=== PATIENT | male | born 1945 | race Caucasian/White ===

== ENCOUNTER → 2024-03-25 13:06 | Outpatient (REF) | payer MEDICARE, OTHER, SELFPAY ==
[2024-03-25 15:52] LABS: HDL Cholesterol 31 mg/dl; LDL Cholesterol, Calculated 95 mg/dl; Total Cholesterol 162 mg/dl (50-199); Triglyceride 182 mg/dl (10-149); Very Low Density Lipoprotein 36 mg/dl (0-30)
== END ==
LOC: HWLAB 13:06
PROVIDERS: ATTENDING PHYSICIAN Internal Medicine Cardiovascular Disease; FAMILY PHYSICIAN Family Medicine
DX: E78.2 Mixed hyperlipidemia (principal); I10 Essential (primary) hypertension
CPT/HCPCS: 36415; 80061

== ENCOUNTER 2024-12-03 18:56 | Inpatient (IN) | payer MEDICARE, OTHER, SELFPAY ==
[2024-12-03] VITALS (9 sets, daily range): BP systolic 106–197; BP diastolic 53–139
--- NOTE | 2024-12-03 17:04 | HPS.HSE ---
Addendum entered and electronically signed by Madeleine Covarrubias MD 12/06/24 16:49:
Late note entry
Patient was seen and evaluated in the emergency the day of presentation around 4:50 PM on December 03, 2024
Briefly, patient is a 79-year-old gentleman with past medical history of hypertension, hyperlipidemia, arthritis, diverticulosis, JOVANNI, prior kidney stones, CVA, GERD, coronary artery disease with ST elevation WA in 2017 with RCA and LAD
intervention, WA in 2011 with occluded OM who presents this admission with acute onset chest discomfort starting around this afternoon radiating to his left shoulder while he was watching TV. He insisted rather than calling EMS that his drive
him to the hospital. Initial presentation showed an EKG with inferior ST elevations for which heart catheterization lab was activated. Patient was seen and evaluated in the emergency room. He was having ongoing 6 out of 10 chest pain. He was
noted to be hypertensive and therefore nitroglycerin was given to him. He was also given full dose aspirin, Brilinta 180 mg, 5000 units of unfractionated heparin and after detailed informed consent was rushed up to the heart catheterization lab.
He tells me that he has only been taking Praluent and no other chronic medications. He confirmed that he has not been taking aspirin or any other antiplatelet agents at home.
On exam patient is an elderly gentleman, tearful while presenting in the emergency room, regular rate, normal S1 and S2, no murmurs, rubs or gallops, abdomen is soft, nontender, nondistended with active bowel sounds, warm extremities without
significant edema
Plan:
1. Acute treatment for ST elevation WA with full dose aspirin, Brilinta 180 mg, IV unfractionated heparin and nitroglycerin x 2
2. After detailed informed consent reviewing the risk and benefits, patient was emergently taken up to the heart catheterization lab for a left heart catheterization to rule out obstructive CAD.
at bedside was updated regarding all of the above.
Further recommendations based on findings of the heart catheterization.
Madeleine Covarrubias MD, [facility], [facility]
Original Note:
Family Physician
-
Family Physician: Erica Gudino MD
International Accountant: Uriel Wheatley MD
Chief Complaint
-
Inferior STEMI
History of Present Illness
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 He developed chest pain at rest this afternoon radiating to shoulder and came to ER. EKG showed
inferior ST elevations, STEMI alert called. He was given ASA 325, Brilinta 180mg, sl nitro. He was brought urgently to engineering laboratory technician
Medical History
Past Medical History
Past Medical History: Reports CAD (STEMI 2018 RCA/LAD, WA 2011 occluded OM), CVA, GERD, HTN, Hypercholesterolemia, WA and Other (Arthritis, Diverticulosis, JOVANNI, kidney stones)
Past Surgical History: Reports Appendectomy, Cholecystectomy and Other (cataract, parotid gland surgery, TKR R, back surgery)
Social History
Tobacco: Non-smoker
Alcohol: None
Personal:
Living: With Family
Family History
Family History: Not pertinent
Allergies / Home Medications
Allergies reflects when Allergies were last updated in [facility].
Home Medications with original date entered in [facility]
Allergy/Medication List:
Allergies
Allergy/AdvReac Type Severity Reaction Status Date / Time
codeine Allergy Rash Verified 12/03/24 16:50
lisinopril Allergy cough Verified 12/03/24 16:50
niacin [Niacin] Allergy Itching Verified 12/03/24 16:50
Xudtiqt-GHR-CuV Reductase Allergy musle Verified 12/03/24 16:50
Inhibitor weakness,soreness
[Occanoi-Jlm-Dox Reductase
Inhibitor]
�Medication �Instructions �Recorded �Confirmed �Type
alirocumab 75 mg/mL subcutaneous 75 mg INJ Q2W High cholesterol 03/07/18 03/18/23 History
pen injector (Praluent Pen)
prednisone 5 mg tablet 5 mg PO HS Anti-inflammatory 03/07/18 03/18/23 History
amoxicillin 875 mg-potassium 1 tab PO Q8H 8 days #4 tabs 03/20/23 Rx
clavulanate 125 mg tablet
Review of Systems
-
Cardiac: Reports Chest Pain
Physical Exam
Vital Signs
Vital Signs
Pulse Resp BP Pulse Ox
80 16 197/87 96
12/03/24 16:59 12/03/24 16:59 12/03/24 16:59 12/03/24 16:59
Physical Exam
General: Pain (chest pain, tearful, deferred as undergoing urgent procedure)
Impression/Plan
-
PCP: Henry Gudino MD
CDY: Uriel Wheatley MD
IMPRESSION:
Acute Inferior STEMI
CAD/WA - 05/21/2018 inferior STEMI PCI RCA 3.65m83sh Xience KSENIA and PCI LAD 3.0x33mm Xience KSENIA
12/28/2011 Unsuccessful PCI with occlusion of OM2 post procedure
CVA 2014
HTN
Hyperlipidemia statin intolerant
JOVANNI/CPAP
GERD/BE
Arthritis
Diverticulitis
Parotid tumor resection and radiation
Obesity
PLAN:
Admit IVU post PCI
Serial troponin to peak
Echo in am
DAPT ASA/Brilinta (CM to eval cost)
check CVE, continue Praluent at d/c
Cardiac rehab c/s
Will need to initiate low dose BB in am
Add PPI for GERD
f/u DCA 2-4 weeks
critically ill, diagnosis is threat to life
continue to monitor on tele at least 48 hours
[2024-12-03 17:05] LABS: % Basophils 0.8 % (0-2); % Immature Granulocytes 0.4 % (0-0.5); % Lymphocytes 14.7 % (20.5-51.1); % Monocytes 8.9 % (1.7-9.3); % Neutrophils 74.2 % (42.2-75.2); Absolute Basophils 0.1 10^3/uL (0-0.2); Absolute Eosinophils 0.1 10^3/uL (0-0.7); Absolute Lymphocytes 1.2 10^3/uL (1.2-3.4); Absolute Monocytes 0.7 10^3/uL (0.1-0.6); Absolute Neutrophils 5.8 10^3/uL (1.4-6.5); Hematocrit 43.6 % (39.0-52.0); Hemoglobin 14.5 g/dL (13.0-18.0); Mean Corp Hgb Conc. 33.3 g/dL (33.0-37.0); Mean Corpuscular Hgb 29.3 pg (27.0-31.0); Mean Corpuscular Volume 88.1 fL (80.0-94.0); Mean Platelet Volume 11.1 fL (7.4-10.4); Nucleated Red Blood Cells % 0 % (-); Platelet Count 182 10^3/uL (130-400); Red Blood Cell Count 4.95 10^6/uL (4.70-6.10); Red Cell Dist. Width 14.5 % (11.5-14.5); White Blood Cell Count 7.8 10^3/uL (4.8-10.8)
--- NOTE | 2024-12-03 17:05 | ED.GENMED ---
History of Present Illness
General
Chief Complaint: Chest Pain
Source: patient and spouse
Exam Limitations: none
Time Seen by Provider: 12/03/24 16:43
Nursing documentation reviewed up to this point in time: agreed with
History of Present Illness
History of Present Illness:
Patient with history of CAD, with multiple cardiac stents, presents to ED secondary to sudden onset of left-sided chest pain while he was at home watching TV. Chest pain described as pressure left-sided, with radiation to left jaw and left arm.
Denies nausea or vomiting. Denies diaphoresis. Denies dizziness. Denies shortness of breath. Denies leg pain or swelling. Denies back pain. Denies recent travel or surgery.
Past History
Past History
ED Past Medical History: CAD, CVA, GERD, HTN, Hypercholesterolemia, [place], Other (Sepsis March 2021, kidney stones, spinal stenosis, arthritis, chronic hearing impaired), Other and Other
ED Past Surgical History: Appendectomy, Cardiac (PTCA with stent), Cholecystectomy, Orthopedic, Urological (Kidney stone removal) and Other
Patient has exhibited threatening behavior?: No
PSI?: No
Social History
Tobacco: Non-smoker
Alcohol: None
Drug: None
Personal:
Living: with family
Employment: Retired
Family History
Family History: Hypertension
Review of Systems
Review of Systems
Allergies reviewed?: Yes
All Other Systems: ROS reviewed and negative except as documented in HPI and ROS
Constitutional: Reports no symptoms; Denies fever
Respiratory: Reports no symptoms; Denies trouble breathing
Cardiac: Reports chest pain
ABD/GI: Reports no symptoms; Denies nausea
: Reports no symptoms
Musculoskeletal: Reports no symptoms
Skin: Reports no symptoms
Neurological: Reports no symptoms
Phy Exam
Physical Exam
Physical Exam:
Physical Exam
General: mild distress, acutely ill. afebrile. hypertensive.
Head: nc/at. eomi
Neck: supple. normal range of motion.
Heart: s1/s2 regular rate and rhythm, no murmur.
Lungs: no acute respiratory distress. clear bilaterally
Abdomen: normal bowel sounds. not tender.
Neuro: alert and oriented x 3. no focal neurological deficits
Skin: no rash
Psychiatric: well kept. interactive and cooperative. anxious appearing
Extremities: no edema. no calf tenderness.
Scores
Heart Score for Chest Pain Patients
STEMI patient?: Yes
History: Highly Suspicious
Course
Orders/Labs/Results
Orders:
Orders
12/03/24 Dinner
Cholesterol Lowering
At Your Request: Full Participation
Cholesterol Lowering: Sodium, 2 Gram
12/03/24 16:34
EKG [Electrocardiogram (*1)] Urgent
Reason for Study: Chest Pain
12/03/24 16:35
EKG- Treatment ONCE
12/03/24 16:51
HYDROmorphone [Dilaudid] 1 mg .ROUTE .STK-MED ONE
12/03/24 16:55
Complete Blood Count/With Diff Urgent
Comprehensive Metabolic Panel Urgent
PT/INR [Prothrombin Time] Urgent
PTT Urgent
Troponin I Urgent
12/03/24 17:08
Aspirin Chewable [Low Strength Aspirin] 324 mg .ROUTE .STK-MED ONE
Heparin 5,000 units .ROUTE .STK-MED ONE
Ticagrelor [Brilinta] 180 mg .ROUTE .STK-MED ONE
12/03/24 17:16
Code Status As Directed
Resuscitation Status: Full Code
12/03/24 17:19
Admit Patient As Directed
Co-Sign Provider:
Level of Care: Inpatient admission
Assign to:: IVU
Physician / Group: ivette/ashtyn
Diagnosis: STEMI
Reason for Hospitalization: STEMI
Expected length of stay greater than two midnights?: Yes
ELOS- Estimated Length of Stay in days: 2
I certify the patient meets the requirements for IP care: Yes
Electrocardiogram (*1) Urgent
Reason for Study: Other
Other Reason for Exam: s/p intervention
Comment: dca
CARDIAC REHAB CONSULT Routine
Co-Sign Provider:
Cardiac Rehab & Exercise Evaluation Referral
Type of Cardiac Rehab Referral: Outpatient
Diagnosis: STEMI
Date of Diagnosis/Surgery: 12/03/24
Referring Provider: Uriel Wheatley
[facility] Intensive Cardiac Rehab Exercise Prescription
The above named person is capable of participating in an intensive cardiac rehab exercise therapy program
under the guidance of the [facility] cardiac rehab staff, outpatient registered dieticians and
supervision of a physician.
ICR Program Objectives:
Provide supervised exercise, cooking classes, nutritional counseling and healthy mind-set education to
improve the function/symptom free work capacity to an optimal level as well as control risk factors to
prevent the progression of heart disease. During the supervised exercise therapy session some or all of
the following may be included in the cardiac rehab session: ECG telemetry, BP, heart rate, rate of
perceived exertion, symptoms/tolerance, cholesterol testing and education. Exercise modalities may
include: treadmill, upright or recumbent bike, spin bike, rowing machine, elliptical, recumbent
elliptical, arm-bike machine, recumbent stepper and free weights.
Intensity:
All CR staff will use ACSM guidelines: Most patients will exercise in the following range: Heart Rate
[place] range of 40% to 80% & Oxygen Uptake reserve range 40-80% (VO2R). Peak heart rate and VO2 are
derived from the cardiac rehab submaximal graded exercise test at RPE of 13/14 out of 20. Initial
intensity range: RPE 11 to 14/20 and may expand to 11 to 16/20.
Duration & Frequency:
If appropriate the patient will be progressed up to 40 minutes of exercise therapy. Patients will be
instructed to come three times a week in cardiac rehab and at a home/other gym to achieve optimal
physical activity/exercies i.e. 4000-10,000 steps per day.
Education:
The patient will receive one-on-one education during their orientation, initial exercise evaluation, ITP
reassessments and discharge session. Each exercise session will also include an education class (30-40
minutes).
Activity As Directed
Activity Level: Out of Bed- Chair
Comment: bed/chair rest for 2 hours then out of bed ad rosamaria
[employer] Procedure As Directed
Cardiac Cath Procedure: percutaneous coronary intervention
Intake/ Output As Directed
Frequency: Per unit guidelines
Notify MD As Directed
Notify physician if: immediately for chest pain or bleeding from access site(s)
Radial Artery Hemostasis Method As Directed
Instructions:: 3 mL out at 2 hour posts placement of band
3 mL out at 2 1/2 hours post placement of band
3 mL out at 3 hours post placement of band
Off at 3 1/2 hours post placement of band
If any oozing or hemotoma occurs:: re-inflate band and call provider
Site Checks As Directed
Check access site for bleeding/hematoma: Yes
Comment: on arrival, Q15min x4, Q30min x2, Q1 hr x2, Q2 hr x2, Q4 hr or per
protocol
Vascular Checks As Directed
Location: distal to access site - pulse check
Frequency: Other
Comment: on arrival, Q15min x4, Q30min x2, Q1 hr x2, Q2 hr x2, Q4 hr or per protocol
Vital Signs As Directed
Frequency: Other
Additional Instructions:: on arrival, Q15min x4, Q30min x2, Q1 hr x2, Q2 hr x2, then Q4 hr or per unit
protocol
PRN Pain Medication Management As Directed
May give lesser potent ordered pain med per pt: Yes
preference::
Protocol:: Medication orders for pain may be administered in a
manner that supports deferring to patient preference
when the pt is:
- Requesting an ordered lesser potent pain medication.
Least to most potent pain medications are defined
as: acetaminophen < NSAID < tramadol < opioids
(morphine, oxycodone, hydromorphone).
- Requesting a lesser dose of the same medication IF
ORDERED.
- Requesting a less intrusive route of administration
if both routes are prescribed by the provider (PO <
IV).
DX Deep Vein Thrombosis Video Routine
12/03/24 17:30
0.9% Sodium Chloride 1000 ml [Nss] 1,000 ml IV PER PROTOCOL
Infusion rate in mL/kg/hr:: 1.5
Infusion rate in mL/hr:: 168
Duration of infusion (hours):: 5
12/03/24 17:32
Case Management Consult ONCE
Case Management Consult: Other
Comment: Brilinta cost
12/03/24 18:27
Acetaminophen [Tylenol] 650 mg PO Q4HPRN PRN
12/03/24 18:28
Ondansetron Injectable [Zofran] 4 mg IV Q6HPRN PRN
12/03/24 19:00
0.9% Sodium Chloride 250 ml [Nss] 250 ml Cangrelor [Kengreal] 50,000 mcg IV 0.75 mcg/kg/min
12/03/24 23:00
Troponin I Q6H
12/04/24 05:00
Troponin I Q6H
12/04/24 06:00
Echo 2D MMode Color/Doppler IN AM
Reason for Study: STEMI
Comment: Covarrubias
Electrocardiogram (*1) IN AM
Reason for Study: Other
Other Reason for Exam: s/p intervention
Comment: dca
Basic Metabolic Panel IN AM
Cardiovascular Evaluation IN AM
Complete Blood Count/No Diff IN AM
Glycohemoglobin (HgbA1c) Routine
12/04/24 08:00
Aspirin Chewable [Low Strength Aspirin] 81 mg PO DAILY
Pantoprazole [Protonix] 40 mg PO DAILY
Ticagrelor [Brilinta] 180 mg PO ONCE ONE
Ticagrelor [Brilinta] 90 mg PO BID
12/04/24 11:00
Troponin I Q6H
12/04/24 18:00
Enoxaparin Sodium [Lovenox] 40 mg SC QPM
12/04/24 20:00
Ticagrelor [Brilinta] 90 mg PO BID
12/05/24 06:00
Electrocardiogram (*1) IN AM
Reason for Study: Other
Other Reason for Exam: s/p intervention
Comment: dca
Basic Metabolic Panel IN AM
Complete Blood Count/No Diff IN AM
Abnormal Lab Results
12/03/24
16:55
MPV 11.1 H fL
(7.4-10.4)
Absolute Monos (auto) 0.7 H 10^3/uL
(0.1-0.6)
Lymphocytes % 14.7 L %
(20.5-51.1)
Chloride 108 H mmol/L
(98-107)
Creatinine 1.5 H mg/dL
(0.7-1.3)
Glucose 110 H mg/dl
(70-99)
Total Bilirubin 2.0 H mg/dl
(0.2-1.3)
Troponin I 0.110 H* ng/ml
12/03/24 16:55
12/03/24 16:55
Vital Signs
Initial and Last Documented VS:
Initial Vital Signs
Pulse Resp BP Pulse Ox
80 16 197/87 96
12/03/24 16:59 12/03/24 16:59 12/03/24 16:59 12/03/24 16:59
Last Documented Vital Signs
Pulse Resp BP Pulse Ox
75 16 197/87 94
12/03/24 19:30 12/03/24 16:59 12/03/24 16:59 12/03/24 19:30
MDM/Problems Addressed
MDM/Problems Addressed:
STEMI alert activated immediately upon evaluation of initial EKG.
Patient evaluated bedside by Dr. Covarrubias, hair dresser. Agrees with plan to proceed with protocol, i.e. aspirin, Brilinta, and heparin, nitroglycerin. Patient's chest pain did not improve with nitroglycerin. As such, patient given
0.5 mg Dilaudid, prior to transfer to [employer].
Critical care statement: A total of 30 minutes of critical care time was provided for this patient. This includes management of unstable vital signs, evaluation of the patient at bedside, reviewing the patient's pertinent medical records, discussion
with consultants, review of old EKGs and review of pertinent medical records. This time with separate from time utilized to perform the aforementioned documented procedures
*EKG
Interpreted by ED Provider?: Yes
EKG Intrepretation Date: 12/03/24
Heart Rate: 76
Rate: normal
Rhythm: sinus
Ischemia: ST elevation
*Critical Care Note
Total Time (30-74mins, 75-104mins- exclusive of procedures): 30 min
ED Attending Note
-
Portions of this chart may have been created with voice recognition software.� Occasional wrong word or��sound alike� substitutions may have occurred due to the inherent limitations of voice recognition software.
Discharge Plan
Departure
Patient Disposition: [facility] [employer]CH[employer]
Date of Disposition: 12/03/24
Time of Disposition: 17:06
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
Presentation/result/management discussed w/ accepting MD/DO:
Discharge Problem:
ST elevation (STEMI) myocardial infarction
Interventions
Interventions:
*Risk Screen - Suicide Last Done: 12/03/24 19:20
*General Assessment Last Done: 12/03/24 17:18
*Neglect/Abuse Screening Last Done: 12/03/24 17:18
*ED- Fall Risk Assessment Last Done: 12/03/24 17:18
*ED COVID-19 Vaccine History Last Done: 12/03/24 19:20
*Nursing Disposition Last Done: 12/03/24 17:08
ED- Cardiac Assessment Last Done: 12/03/24 17:18
Discharge Date and Time
Discharge Date/Time: 12/03/24 17:31
[2024-12-03 17:14] LABS: APTT 24.3 Sec (23.4-35.0); PT 13.7 Sec (11.4-14.6)
[2024-12-03 17:27] LABS: ALT (SGPT) 14 U/L (0-50); AST (SGOT) 22 U/L (17-59); Albumin 4.4 g/dl (3.5-5.0); Alkaline Phosphatase 47 U/L (38-126); Blood Urea Nitrogen 16 mg/dl (9-20); Calcium 9.2 mg/dl (8.4-10.2); Carbon Dioxide 22 mmol/L (22-30); Chloride 108 mmol/L (98-107); Estimated Creatinine Clearance 52 ml/min; Glucose 110 mg/dl (70-99); Sodium 143 mmol/L (135-145); Total Protein 6.7 g/dl (6.3-8.2); eGFR 47.36
--- NOTE | 2024-12-03 18:39 | ITS.CL.CATH ---
Addendum entered and electronically signed by Madeleine Covarrubias MD 12/06/24 17:02:
CORONARY FINDINGS
DOMINANCE: Right
LEFT MAIN: The left main artery is a large-caliber vessel with 30% distal stenosis and gives rise to the left anterior descending artery and the left circumflex artery.
LEFT ANTERIOR DESCENDING: The left anterior descending artery is a medium to large caliber vessel which gives rise to 2 major diagonal branches. Ostial LAD has eccentric 30 to 40% stenosis. Proximal to mid LAD has eccentric 50 to 60% stenosis.
Mid LAD has 90% stenosis just distal to previously placed stent.
CIRCUMFLEX: The left circumflex artery is a medium to large caliber vessel which gives rise to 1 major obtuse marginal branch. There is a known 100% mid left circumflex occlusion at the level of prior PCI which has been present on prior
catheterization. OM1 has proximal 70 to 80% calcified stenosis.
RIGHT CORONARY ARTERY: The right coronary artery is a large-caliber, dominant vessel which gives rise to the right posterior descending artery and the right posterolateral system. Mid to distal LAD has a hazy, ulcerated, 70% culprit plaque with
appearance of recent cannulization which was intervened upon as noted below. Distal LAD just proximal to the bifurcation of RPDA and RPL has 40% stenosis. Previously placed proximal RCA stent is widely patent.
Madeleine Covarrubias MD, [facility], [facility]
Original Note:
Device Engineer - Catheterization
Cardiac Catheterization
Procedure Report:
LEFT HEART CATHETERIZATION AND CORONARY INTERVENTION
Date of Procedure: December 03, 2024
Referring: [place] emergency department
PROCEDURES:
1. Left heart catheterization, coronary angiogram.
2. Moderate sedation.
3. Successful percutaneous coronary artery intervention of a hazy, ulcerated, 70% culprit plaque in mid to distal RCA with appearance of recent recanalization with one 3.0 x 38 mm Medtronic Hickman drug-eluting stent, postdilated using IVUS guidance
with a 3.5 x 20 mm NC balloon at 18 jai distally and 20 jai proximally with an excellent angiographic result.
4. Intravascular ultrasound (IVUS)
INDICATION: patient is a 79-year-old gentleman with past medical history of hypertension, hyperlipidemia, arthritis, diverticulosis, JOVANNI, prior kidney stones, CVA, GERD, coronary artery disease with ST elevation AK in 2018 with RCA (3.25 x 18 mm
Xience Day drug-eluting stent, postdilated at high pressure with a 4 mm NC balloon) and LAD (3.0 x 33 mm Xience Day KSENIA, postdilated with 3.5 NC balloon) intervention, AK in 2011 with occluded OM who presents this admission with acute onset
chest discomfort starting around this afternoon radiating to his left shoulder while he was watching TV. He insisted rather than calling EMS that his drive him to the hospital. Initial presentation showed an EKG with inferior ST elevations
for which heart catheterization lab was activated. Patient was seen and evaluated in the emergency room. He was having ongoing 6 out of 10 chest pain. He was noted to be hypertensive and therefore nitroglycerin was given to him. He was also
given full dose aspirin, Brilinta 180 mg, 5000 units of unfractionated heparin and after detailed informed consent was rushed up to the heart catheterization lab. He tells me that he has only been taking Praluent and no other chronic medications.
He confirmed that he has not been taking aspirin or any other antiplatelet agents at home.
ACCESS: Right radial artery, 6 Bahamian sheath, under ultrasound guidance
Ultrasound was utilized for vascular access. The radial artery was visualized under ultrasound, and the vessel was patent and pulsatile. An image was stored permanently in the patient's medical record. Under direct ultrasound guidance, a 6 Bahamian
sheath was inserted into the artery using a micropuncture kit through a modified Seldinger technique.
HEMODYNAMICS : (mmHg)
AO (s/d) : 153/90
LVEDP : 12
CORONARY FINDINGS
DOMINANCE: Right
LEFT MAIN: The left main artery is a large-caliber vessel with 30% distal stenosis and gives rise to the left anterior descending artery and the left circumflex artery.
LEFT ANTERIOR DESCENDING: The left circumflex artery is a medium to large caliber vessel which gives rise to 1 major obtuse marginal branch. There is a known 100% mid left circumflex occlusion at the level of prior PCI which has been present on
prior catheterization. OM1 has proximal 70 to 80% stenosis.
CIRCUMFLEX: The left anterior descending artery is a medium to large caliber vessel which gives rise to 2 major diagonal branches. Ostial LAD has eccentric 30 to 40% stenosis. Proximal to mid LAD has eccentric 50 to 60% stenosis. Mid LAD has 90%
stenosis just distal to previously placed stent.
RIGHT CORONARY ARTERY: The right coronary artery is a large-caliber, dominant vessel which gives rise to the right posterior descending artery and the right posterolateral system. Mid to distal LAD has a hazy, ulcerated, 70% culprit plaque with
appearance of recent cannulization which was intervened upon as noted below. Distal LAD just proximal to the bifurcation of RPDA and RPL has 40% stenosis. Previously placed proximal RCA stent is widely patent.
Of note we started off by
*Initially attempting to take images of the left coronary system which was the known culprit vessel however after just 2 shots patient had significant vomiting and therefore we quickly proceeded to look at the right side to find the culprit vessel
and intervene on this and eventually came back to take more thorough images of the left coronary system. Patient did receive 4 mg of IV Zofran and anesthesia was paged emergently in case patient were to not protect his airway however patient
stabilized and never needed intubation.
CORONARY INTERVENTION: The right coronary artery was selectively engaged using a 6 Bahamian JR4 guide catheter. Additional heparin was given to maintain a therapeutic ACT throughout the case. We advanced a 190 cm 0.014' run-through wire into the
distal vessel. The lesion was predilated using a 3.0 x 20 mm semicompliant balloon with good expansion. The lesion was subsequently stented using a 3.0 x 38 mm Medtronic Hickman drug-eluting stent. We then brought in IVUS [place] eye catheter and
based on IVUS images, we postdilated the stent using a 3.5 x 20 mm NC balloon at 18 jai distally and 20 jai proximally with an excellent angiographic and IVUS based result. No evidence of proximal or distal stent edge dissections were noted. The
stent appeared well-expanded and well apposed. The patient's chest discomfort has significantly improved by the end of the case and essentially resolved. His nausea was somewhat ongoing. He otherwise tolerated the procedure well with no acute
complications.
SEDATION: 87 minutes of procedural sedation was utilized. An independent medical imaging tech was present to assist with and help manage the patient's level of consciousness and physiologic status.
RADIATION SUMMARY: Fluoro Time (min): 10.7, Dose (mGy): 967.44, DAP (Gy.cm2) : 53.7
Closure Device: Vascular band over the right radial artery, 10 cc of air
CONCLUSIONS
1. Successful percutaneous coronary artery intervention of a hazy, ulcerated, 70% culprit plaque in mid to distal RCA with appearance of recent recanalization with one 3.0 x 38 mm Medtronic Hickman drug-eluting stent, postdilated using IVUS guidance
with a 3.5 x 20 mm NC balloon at 18 jai distally and 20 jai proximally with an excellent angiographic result.
2. There is a known 100% mid left circumflex occlusion at the level of prior PCI which has been present on prior catheterization. OM1 has proximal 70 to 80% stenosis.
3. Ostial LAD has eccentric 30 to 40% stenosis. Proximal to mid LAD has eccentric 50 to 60% stenosis. Mid LAD has 90% stenosis just distal to previously placed stent.
4. Normal LVEDP at 12 mmHg
RECOMMENDATIONS
1. Uninterrupted dual antiplatelet therapy with daily baby aspirin and Brilinta along with Praluent and beta-jd as tolerated. Given he threw up soon after his loading dose of Brilinta in the emergency room, we will bridge with cangrelor
overnight in the setting of ongoing nausea with plan to reload 180 mg of Brilinta in the morning.
2. Wean radial band per protocol.
3. Echocardiogram to assess biventricular function and rule out any significant valvular abnormalities.
4. Staged PCI of mid to distal LAD +/- OM1.
5. Aggressive management of cardiovascular risk factors.
6. Eventual referral for outpatient cardiac rehab.
Copy to: Uriel Wheatley MD
Madeleine Covarrubias MD, FACC, [facility]
--- NOTE | 2024-12-03 19:33 | PTCARENOTE ---
Patient received from the concrete mixing plant laborer at 1930. Patient AO x 3, U[place]UT, denies pain. NSR with 1st degree HB, EKG completed. Right radial band in place, no bleeding, POX 97% on right hand. Patient oriented to room and call zheng in reach
[2024-12-03] MEDS: KENGREAL 255 MCG IV (19:56)
--- NOTE | 2024-12-03 20:00 | PTCARENOTE ---
Received pt from poultry farm laborer s/p PCI to the RCA by Dr Covarrubias. pt is AAOx4, NSR with 1st degree AV blocked per EKG. Pt had 8 beat run of [facility], VSS, Dr. Covarrubias notified, verbal order for 25mg Toprol XL taken and sent to pharmacy. Admission questions asked
of pt and his . Home meds reviewed and pt stated that he has stopped taking all meds except for Praluent Pen. heart sounds audible, radial and DP pulses palpable, no edema noted. lungs clear but diminished throughout, spo2 95% on RA. +BS x4
quadrants, abdomen soft non tender, round/obese. pt voiding clear yellow urine. right radial I band on with 11mls of air, no active bleeding noted, following protocol. PIV maintained. Cangrelor gtt started per order and verified by another RN. call
zheng within reach. will continue to monitor.
[2024-12-03] MEDS: TOPROL XL 25 MG PO (21:22)
--- NOTE | 2024-12-03 21:30 | PTCARENOTE ---
Received pt from labelling machine operator s/p PCI to the RCA by Dr Covarrubias. pt is AAOx4, NSR with 1st degree AV blocked per EKG. Pt had 8 beat run of [facility], VSS, Dr. Covarrubias notified, verbal order for 25mg Toprol XL taken and sent to pharmacy. Admission questions asked
of pt and his . Home meds reviewed and pt stated that he has stopped taking all meds except for Praluent Pen. heart sounds audible, radial and DP pulses palpable, no edema noted. lungs clear but diminished throughout, spo2 95% on RA. +BS x4
quadrants, abdomen soft non tender, round/obese. pt voiding clear yellow urine. right radial TR band on with 11mls of air, no active bleeding noted, following protocol. PIV maintained. Cangrelor gtt started per order and verified by another RN. call
zheng within reach. will continue to monitor
[2024-12-04] VITALS (14 sets, daily range): BP systolic 83–122; BP diastolic 45–80; BMI 33.6
--- NOTE | 2024-12-04 00:23 | PTCARENOTE ---
Pt is resting comfortably in bed. VSS. pt has had ongoing PVC and runs of VT. vital signs have remained stable throughout the night. House provider notified.
[2024-12-04 01:20] LABS: Hematocrit 38.6 % (39.0-52.0); Hemoglobin 12.9 g/dL (13.0-18.0); Mean Corp Hgb Conc. 33.4 g/dL (33.0-37.0); Mean Corpuscular Hgb 29.5 pg (27.0-31.0); Mean Corpuscular Volume 88.1 fL (80.0-94.0); Mean Platelet Volume 10.9 fL (7.4-10.4); Platelet Count 144 10^3/uL (130-400); Red Blood Cell Count 4.38 10^6/uL (4.70-6.10); Red Cell Dist. Width 14.3 % (11.5-14.5); White Blood Cell Count 6.8 10^3/uL (4.8-10.8)
[2024-12-04 01:34] LABS: Blood Urea Nitrogen 18 mg/dl (9-20); Calcium 8.5 mg/dl (8.4-10.2); Carbon Dioxide 24 mmol/L (22-30); Chloride 109 mmol/L (98-107); Estimated Creatinine Clearance 65 ml/min; Glucose 95 mg/dl (70-99); Potassium 3.9 mmol/L (3.5-5.1); Sodium 143 mmol/L (135-145); eGFR > 60.00
--- NOTE | 2024-12-04 04:00 | PTCARENOTE ---
Pt resting comfortably in bed. NSR with 1st degree AVB and on going PVCs. pt complained of mild right shoulder pain, house provided notified. care team aware. labs drawn and sent. EKG obtained.
[2024-12-04 04:39] LABS: Hematocrit 39.8 % (39.0-52.0); Hemoglobin 13.4 g/dL (13.0-18.0); Mean Corp Hgb Conc. 33.7 g/dL (33.0-37.0); Mean Corpuscular Hgb 29.6 pg (27.0-31.0); Mean Corpuscular Volume 88.1 fL (80.0-94.0); Mean Platelet Volume 11.2 fL (7.4-10.4); Platelet Count 156 10^3/uL (130-400); Red Blood Cell Count 4.52 10^6/uL (4.70-6.10); Red Cell Dist. Width 14.5 % (11.5-14.5); White Blood Cell Count 7.9 10^3/uL (4.8-10.8)
[2024-12-04] MEDS: KENGREAL 255 MCG IV (05:23)
[2024-12-04 05:25] LABS: Blood Urea Nitrogen 16 mg/dl (9-20); Calcium 8.7 mg/dl (8.4-10.2); Carbon Dioxide 24 mmol/L (22-30); Chloride 110 mmol/L (98-107); Estimated Creatinine Clearance 64 ml/min; Glucose 97 mg/dl (70-99); HDL Cholesterol 30 mg/dl; LDL Cholesterol, Calculated 49 mg/dl; Potassium 3.9 mmol/L (3.5-5.1); Sodium 142 mmol/L (135-145); Total Cholesterol 111 mg/dl (50-199); Triglyceride 162 mg/dl (10-149); Very Low Density Lipoprotein 32 mg/dl (0-30); eGFR > 60.00
[2024-12-04] MEDS: PROTONIX 40 MG PO (09:09)
[2024-12-04] MEDS: TOPROL XL 25 MG PO (09:09)
[2024-12-04] MEDS: BRILINTA 180 MG PO (09:09)
[2024-12-04] MEDS: LOW STRENGTH ASPIRIN 81 MG PO (09:12)
--- NOTE | 2024-12-04 10:03 | CM ---
Priced the following medication thru patient's outpatient [facility]-
Anyilinta estimated to be $112/mo.
[facility].
[2024-12-04 10:21] LABS: Glycohemoglobin (HgbA1c) 5.3 % (4.0-5.6)
--- NOTE | 2024-12-04 11:21 | W.PN.CARDCBS ---
Addendum entered and electronically signed by Madeleine Covarrubias MD 12/04/24 17:12:
I saw and examined the patient.
The Coping Machine Assembler's note was reviewed and I agree with the note.
Comment: Saw patient and his at bedside. No overnight events other than frequent ventricular ectopy on telemetry and nonsustained VT for which he was given Toprol-XL 25 mg once. No further chest discomfort or shortness of breath. He is
sitting up in bed comfortable.
Vital signs and lab work reviewed. On exam patient is well-appearing, no acute distress, regular rate, normal S1 and S2, no lungs are clear to auscultation bilaterally, JVD, abdomen is soft, nontender, nondistended with active bowel sounds, warm
extremities without significant edema.
Plan
1. Uninterrupted dual antiplatelet therapy with daily baby aspirin and Brilinta 90 mg twice daily. We discussed the cost of Brilinta with the patient and the fact that it would have to be a twice a day medication given his prior medication
noncompliance and he reassured us along with the that it is affordable and they will religiously be taking medications. Spent a extensive amount of time educating them in regards to importance of medication compliance given that this is his
third heart attack over the years.
2. Peak troponin of 79, downtrending. Telemetry with decreased ventricular ectopy.
3. Creatinine downtrending from 1.5-1.2. Continue to monitor closely.
4. Given statin allergy, on Praluent with LDL less than 55 and at goal. No evidence of prediabetes or diabetes. Blood pressures are overall well-controlled.
5. Echocardiogram reviewed showing low normal LV systolic function with LVEF of 50 to 55% and inferior hypokinesis. No significant valvular abnormalities.
6. We discussed bringing him back to the lab for staged PCI to mid LAD +/- OM1 patient is agreeable along with his ..
7. Cardiac rehab recommended. He also at length discussed importance of following a high-fiber Mediterranean type diet that is low in sodium and staying physically active to optimize his cardiovascular risk.
Madeleine Covarrubias MD, FACC, [facility]
Total time spent: 52-minutes
Original Note:
Today's Communication / Plan
-
Continue post IN care, plan to return to manager cath lab Sunday for staged PCI as long as creatinine stable in am
Impression / Plan
-
PCP: Henry Gudino MD
CDY: Uriel Wheatley MD
IMPRESSION:
Acute Inferior STEMI
CAD/IN - 05/21/2018 inferior STEMI PCI RCA 3.64w02mk Xience KSENIA and PCI LAD 3.0x33mm Xience KSENIA
12/28/2011 Unsuccessful PCI with occlusion of OM2 post procedure
post PCI mid RCA x 1 KSENIA 12/03/24
Residual OM1 70-80% stenosis and mid LAD 90% stenosis
KEITH Cr 1.5 on admission down to 1.2
CVA 2014
HTN
Hyperlipidemia statin intolerant
JOVANNI/CPAP
GERD/BE
Arthritis
Diverticulitis
Parotid tumor resection and radiation
Obesity
non compliance
PLAN:
Post PCI RCA x 1, 08/22 residual right sided chest discomfort
tele SB 1 deg AVB with NSVT
troponin trending 79.5 this am trend to peak
Echo today
DAPT ASA/Brilinta (CM to eval cost)
LDL 49, continue Praluent at d/c
new start to metoprolol, will assess EF to decide if ARB
He is hesitant to take any meds, reinforced importance of DAPT
Add PPI for GERD
Cardiac rehab c/s
f/u DCA 2-4 weeks
Plan for return to [facility] cath lab Tuesday 12/05 for PCI LAD +- OM, as long as Cr stable
continue to monitor on tele
CONCLUSIONS
1. Successful percutaneous coronary artery intervention of a hazy, ulcerated, 70% culprit plaque in mid to distal RCA with appearance of recent recanalization with one 3.0 x 38 mm Medtronic Devyn drug-eluting stent, postdilated using IVUS guidance
with a 3.5 x 20 mm NC balloon at 18 jai distally and 20 jai proximally with an excellent angiographic result.
2. There is a known 100% mid left circumflex occlusion at the level of prior PCI which has been present on prior catheterization. OM1 has proximal 70 to 80% stenosis.
3. Ostial LAD has eccentric 30 to 40% stenosis. Proximal to mid LAD has eccentric 50 to 60% stenosis. Mid LAD has 90% stenosis just distal to previously placed stent.
4. Normal LVEDP at 12 mmHg
RECOMMENDATIONS
1. Uninterrupted dual antiplatelet therapy with daily baby aspirin and Brilinta along with Praluent and beta-jd as tolerated. Given he threw up soon after his loading dose of Brilinta in the emergency room, we will bridge with cangrelor
overnight with plan to reload 180 mg of Brilinta in the morning.
2. Wean radial band per protocol.
3. Echocardiogram to assess biventricular function and rule out any significant valvular abnormalities.
4. Staged PCI of mid to distal LAD +/- OM1.
5. Aggressive management of cardiovascular risk factors.
6. Eventual referral for outpatient cardiac rehab.
Progress Note - [employer]
Subjective
Date of Service: December 04, 2024
mild 1/10 chest discomfort, no sob
Objective
Labs:
12/04/24 04:25
12/04/24 04:25
Labs
Hgb 13.4 g/dL (13.0-18.0) 12/04/24 04:25
Hct 39.8 % (39.0-52.0) 12/04/24 04:25
Plt Count 156 10^3/uL (130-400) 12/04/24 04:25
PT 13.7 Sec (11.4-14.6) 12/03/24 16:55
INR 1.00 12/03/24 16:55
APTT 24.3 Sec (23.4-35.0) 12/03/24 16:55
Sodium 142 mmol/L (135-145) 12/04/24 04:25
Potassium 3.9 mmol/L (3.5-5.1) 12/04/24 04:25
BUN 16 mg/dl (9-20) 12/04/24 04:25
Creatinine 1.2 mg/dL (0.7-1.3) 12/04/24 04:25
Glucose 97 mg/dl (70-99) 12/04/24 04:25
Troponins
12/03/24 12/03/24 12/04/24
16:55 23:09 04:25
Troponin I 0.110 H* 30.500 H* D 79.500 H* D
Vital Signs and I&O:
Vital Signs
Temp Pulse Resp BP Pulse Ox
97.8 F 69 20 101/73 96
12/04/24 07:24 12/04/24 08:00 12/04/24 07:24 12/04/24 09:09 12/04/24 09:16
Vital Signs
Temp Pulse Resp BP Pulse Ox
97.8 F 69 20 101/73 96
12/04/24 07:24 12/04/24 08:00 12/04/24 07:24 12/04/24 09:09 12/04/24 09:16
Intake & Output
12/02/24 12/03/24 12/04/24 12/05/24
06:59 06:59 06:59 06:59
Intake Total 240 / 240
Output Total 700 / 700 400 / 400
Balance -700 / -700 -160 / -160
Physical Exam
Physical Exam
NAD< AOX3
S1, S2, RRR
CTAB, non labored, no wheeze
SNTND Bsx4
R rad site good pulse c/d/i
--- NOTE | 2024-12-04 15:53 | CM ---
CM following for DC planning needs.
Met w/ patient at bedside to complete initial assessment.
Pt. resides w/ spouse in a private, [facility]. There is a 1st floor set up.
Pt. is completely indep. at baseline w/ ADLs, mobility without the use of any assisted device. Pt. has CPAP at home, which he uses irregularly.
Pt. has RX plan [facility] on [address]
We reviewed estimated cost of Brilinta and Medicare reimbursement.
Antic. DC plan is for home, no needs.
Will follow.
[2024-12-04] MEDS: LOVENOX 40 MG SC (18:33)
[2024-12-04] MEDS: TYLENOL 650 MG PO (18:36)
--- NOTE | 2024-12-04 19:35 | PTCARENOTE ---
Pt denied any chest discomfort but at the end of the day reported a 7/10 headache and was given tylenol. Pt mainly resting in bed today. Telemetry shows sinus rhythm with first degree AV block with run of NSVT and frequent PVC's and triplets, pt
asymptomatic, Meenakshi Burgos, SEAM PRESS OPERATOR aware. Pt learning more about his medications and plan of care. Plan PCI on 12/05 if Cr is stable.
[2024-12-04] MEDS: BRILINTA 90 MG PO (19:42)
--- NOTE | 2024-12-04 21:08 | PTCARENOTE ---
Received pt @ change of shift. AAOx3. VSS. Rt radial site clean, dry, and intact. Soft to touch, no oozing or firmness. Discussed NPO @ midnight for procedure in AM and plan of care for evening. Pt verbalized understanding. Call zheng within reach.
[2024-12-05] VITALS (18 sets, daily range): BP systolic 86–140; BP diastolic 45–110; BMI 33.5
[2024-12-05 05:05] LABS: Hepatitis C Antibody Negative (Negative)
[2024-12-05 05:18] LABS: Hematocrit 39.3 % (39.0-52.0); Mean Corp Hgb Conc. 33.1 g/dL (33.0-37.0); Mean Corpuscular Hgb 29.5 pg (27.0-31.0); Mean Corpuscular Volume 89.3 fL (80.0-94.0); Mean Platelet Volume 11.7 fL (7.4-10.4); Platelet Count 147 10^3/uL (130-400); Red Cell Dist. Width 14.6 % (11.5-14.5); White Blood Cell Count 6.7 10^3/uL (4.8-10.8)
[2024-12-05 05:49] LABS: Blood Urea Nitrogen 14 mg/dl (9-20); Calcium 8.9 mg/dl (8.4-10.2); Carbon Dioxide 26 mmol/L (22-30); Chloride 108 mmol/L (98-107); Estimated Creatinine Clearance 64 ml/min; Glucose 99 mg/dl (70-99); Potassium 3.9 mmol/L (3.5-5.1); Sodium 141 mmol/L (135-145); eGFR > 60.00
[2024-12-05] MEDS: PROTONIX 40 MG PO (08:20)
[2024-12-05] MEDS: TOPROL XL 25 MG PO (08:20)
[2024-12-05] MEDS: LOW STRENGTH ASPIRIN 81 MG PO (08:21)
[2024-12-05] MEDS: TYLENOL 650 MG PO (08:21)
[2024-12-05] MEDS: BRILINTA 90 MG PO ×2 (08:21→20:16)
--- NOTE | 2024-12-05 12:10 | CM ---
CM following for DC planning needs.
Met w/ spouse at bedside. 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
DC plan reviewed for home without needs.
Will remain avail.
[2024-12-05 12:36] LABS: ACT-LR - POC 358 Seconds (116-155)
[2024-12-05 12:48] LABS: ACT-LR - POC 297 Seconds (116-155)
[2024-12-05] MEDS: NSS 1000 IV (13:05)
--- NOTE | 2024-12-05 19:36 | PTCARENOTE ---
Pt had a stent placed to LAD via right radial artery. Radial band removed per protocol, site is bruised, no bleeding or hematoma. Pt denies any chest discomfort, c/o mild headache. Pt voiding without difficulty. Telemetry shows sinus rhythm with
first degree AV block and LBBB.
[2024-12-05] MEDS: LOVENOX 40 MG SC (20:15)
--- NOTE | 2024-12-05 20:33 | ITS.CL.CATH ---
[employer] - Catheterization
Cardiac Catheterization
Procedure Report:
LEFT HEART CATHETERIZATION AND CORONARY INTERVENTION
Date of Procedure: December 05, 2024
Referring: Madeleine Covarrubias MD, [facility], [facility]
PROCEDURES:
1. Left heart catheterization, coronary angiogram.
2. Successful staged percutaneous coronary artery intervention of a 90% mid LAD stenosis with one 3.0 x 22 mm Medtronic [place] drug-eluting stent, postdilated using IVUS guidance with 3.25 x 20 mm NC balloon at 22 jai with an excellent angiographic
and IVUS based result.
3. Intravascular ultrasound (IVUS)
4. Moderate sedation.
INDICATION: Staged PCI post recent STEMI, now with plan to intervene on mid LAD. Given initial presentation of KEITH, we will also assess invasive LV pressure to help with postprocedural hydration.
ACCESS: Right radial artery, 6 [place] sheath, under ultrasound guidance
Ultrasound was utilized for vascular access. The radial artery was visualized under ultrasound, and the vessel was patent and pulsatile. An image was stored permanently in the patient's medical record. Under direct ultrasound guidance, a 6 [place]
sheath was inserted into the artery using a micropuncture kit through a modified Seldinger technique.
HEMODYNAMICS : (mmHg)
AO (s/d) : 110/66
LV (s/d) : 96/6
LVEDP : 11
CORONARY FINDINGS
DOMINANCE: Right
LEFT MAIN: The left main artery is a large-caliber vessel with 30% distal stenosis and gives rise to the left anterior descending artery and the left circumflex artery.
LEFT ANTERIOR DESCENDING: The left anterior descending artery is a medium to large caliber vessel which gives rise to 2 major diagonal branches. Ostial LAD has eccentric 30 to 40% stenosis. Proximal to mid LAD has eccentric 50 to 60% stenosis.
Mid LAD has 90% stenosis just distal to previously placed stent.
CIRCUMFLEX: The left circumflex artery is a medium to large caliber vessel which gives rise to 1 major obtuse marginal branch. There is a known 100% mid left circumflex occlusion at the level of prior PCI which has been present on prior
catheterization. OM1 has proximal 70 to 80% calcified stenosis.
RIGHT CORONARY ARTERY: The right coronary artery is a large-caliber, dominant vessel which gives rise to the right posterior descending artery and the right posterolateral system. Recently placed mid RCA stent is widely patent. Distal RCA just
proximal to the bifurcation of RPDA and RPL has 40% stenosis. Previously placed proximal RCA stent is widely patent.
CORONARY INTERVENTION: The left coronary artery was selectively engaged using a EBU 3.75 guide catheter. Additional heparin was given to maintain a therapeutic ACT throughout the case. We used a 190 cm 0.014' run-through coronary wire which we
successfully advanced into the distal vessel. Initially we tried 3 dilating the lesion using a 2.75 x 12 mm semicompliant balloon however despite multiple inflations, the balloon Watermelon seeding due to significant stenosis. We then proceeded
with predilatation with a 2.75 x 20 mm semicompliant balloon at 12 jai with good expansion. The lesion was subsequently stented using a 3.0 x 22 mm Medtronic [place] drug-eluting stent. We then proceeded with IVUS [place] eye catheter and based on IVUS
imaging the stent was postdilated successfully using a 3.25 x 20 mm NC balloon at 22 jai with an excellent angiographic and IVUS based result. IVUS imaging showed a well-expanded and well apposed stent without evidence of distal stent edge
dissection. We then proceeded to attempt intervention at the ostial obtuse marginal branch. We tried redirecting our run-through wire by pulling it back over the LAD into the OM1. Initially the wire went through without any difficulty however
when we tried to bring in a 2.75 x 12 mm semicompliant balloon despite multiple attempts, the balloon would not pass and unfortunately pushed the entire system including the guide out of the left coronary artery. The guide was reengaged and we
attempted wiring the vessel again however despite multiple attempts we could not direct the run-through wire into the OM with the wire getting caught at the calcium in the lesion at the ostium which kept pushing the entire system out. At this point
given patient was starting to have right upper extremity discomfort, we decided to abort any further tries with plan to medically optimize and bring him back at a later date for ostial OM1 intervention if he fails medical therapy with any anginal
symptoms. Otherwise the patient tolerated the procedure well with no acute complications.
SEDATION: 67 minutes of procedural sedation was utilized. An independent medical insurance clerk was present to assist with and help manage the patient's level of consciousness and physiologic status.
RADIATION SUMMARY: Fluoro Time (min): 16.2, Dose (mGy): 887.44, DAP (Gy.cm2) : 51.9
Closure Device: Vascular band over right radial artery, 10 cc of air.
CONCLUSIONS
1. Successful staged percutaneous coronary artery intervention of a 90% mid LAD stenosis with one 3.0 x 22 mm Medtronic [place] drug-eluting stent, postdilated using IVUS guidance with 3.25 x 20 mm NC balloon at 22 jai with an excellent angiographic
and IVUS based result.
2. Widely patent mid RCA stent from December 03, 2024.
3. 70-80% ostial OM1 stenosis. Attempted percutaneous intervention however given difficulty wiring the lesion due to significant calcium at the ostium, and patient developing right upper extremity discomfort, attempts were aborted.
RECOMMENDATIONS
1. Uninterrupted dual antiplatelet therapy with daily baby aspirin and Brilinta along with Praluent and beta-jd as tolerated.
2. Wean radial band per protocol.
3. Optimization of medical therapy for coronary artery disease. If he has any recurrent anginal symptoms despite optimal medical therapy, consideration for percutaneous coronary intervention to ostial OM.
4. Aggressive management of cardiovascular risk factors.
5. Eventual referral for outpatient cardiac rehab.
Copy to: Uriel Wheatley MD
Madeleine Covarrubias MD, [facility], [facility]
--- NOTE | 2024-12-05 22:07 | PTCARENOTE ---
Received pt @ change of shift. AAOx3. VSS. Right radial site clean, dry, and intact. Ecchymotic, but soft to touch. Discussed plan of care for evening. Pt verbalizes understanding. Call zheng within reach.
[2024-12-06 03:20] VITALS: BP 134/81
[2024-12-06 03:22] VITALS: BP 134/81
[2024-12-06 04:05] LABS: Hematocrit 38.7 % (39.0-52.0); Hemoglobin 12.9 g/dL (13.0-18.0); Mean Corp Hgb Conc. 33.3 g/dL (33.0-37.0); Mean Corpuscular Hgb 29.6 pg (27.0-31.0); Mean Corpuscular Volume 88.8 fL (80.0-94.0); Mean Platelet Volume 11.5 fL (7.4-10.4); Platelet Count 149 10^3/uL (130-400); Red Blood Cell Count 4.36 10^6/uL (4.70-6.10); Red Cell Dist. Width 14.6 % (11.5-14.5); White Blood Cell Count 6.7 10^3/uL (4.8-10.8)
[2024-12-06 04:28] LABS: Blood Urea Nitrogen 13 mg/dl (9-20); Calcium 8.5 mg/dl (8.4-10.2); Carbon Dioxide 21 mmol/L (22-30); Chloride 110 mmol/L (98-107); Estimated Creatinine Clearance 70 ml/min; Glucose 97 mg/dl (70-99); Potassium 3.8 mmol/L (3.5-5.1); Sodium 142 mmol/L (135-145); eGFR > 60.00
[2024-12-06 08:09] VITALS: BP 107/62
--- NOTE | 2024-12-06 08:20 | W.PN.CARDCBS ---
Addendum entered and electronically signed by Mahesh Jay MD 12/06/24 14:14:
I saw and examined the patient.
The Supervisor Multifocal [employer]ens's note was reviewed and I agree with the note.
Comment: Briefly, 79-year-old man past medical history multivessel CAD with prior PCI presenting with acute inferior STEMI and underwent PCI mRCA. Subsequently underwent staged procedure on 12/05/2024 with PCI of the mid LAD.
This morning he was resting comfortably in bed, no cardiac complaints including no chest discomfort or shortness of breath
Telemetry showed sinus rhythm with PVCs but no sustained arrhythmias
Agree with current medical treatment of CAD: Aspirin/Brilinta/metoprolol/Praluent
Eventual cardiac rehab
Stable for discharge from my perspective
Outpatient follow-up has been arranged
Original Note:
Today's Communication / Plan
-
ok for discharge s/p staged stenting
discussed importance of med compliance
f/u arranged
Impression / Plan
-
PCP: Henry Gudino MD
CDY: Uriel Wheatley MD
IMPRESSION:
Acute Inferior STEMI
CAD/MD - 05/21/2018 inferior STEMI PCI RCA 3.73e47pm Xience KSENIA and PCI LAD 3.0x33mm Xience KSENIA
12/28/2011 Unsuccessful PCI with occlusion of OM2 post procedure
post PCI mid RCA x 1 KSENIA 12/03/24
Post staged PCI mid LAD x 1 KSENIA 12/05/2024
Residual OM1 70-80% stenosis and mid LAD 90% stenosis
KEITH Cr 1.5 on admission down to 1.2
CVA 2014
HTN
Hyperlipidemia statin intolerant
JOVANNI/CPAP
GERD/BE
Arthritis
Diverticulitis
Parotid tumor resection and radiation
Obesity
non compliance
PLAN:
Post PCI RCA x 1 KSENIA on 12/03/2024 with staged PCI mid LAD x 1 KSENIA 12/05/2024
troponin peak 79.5, trending down, last trop 55 on 12/04/2024
DAPT ASA/Brilinta (CM to eval cost)
LDL 49, continue Praluent at d/c
Echo 11/30/2024: LVEF 50 to 55%, inferior wall hypokinesis, normal RV size and function
new start to metoprolol, will assess EF to decide if ARB- EF nl and Bps lower, will not start
He is hesitant to take any meds, reinforced importance of DAPT
Creatinine stable post cath 1.1 on 12/06/2024
Add PPI for GERD
Cardiac rehab c/s
f/u DCA 2-4 weeks-arranged
tele NSR, 3 beat NSVT
K 3.8, will give one time dose KCl 20 meq
EKG: NSR first degree AVB, LAD
Previous documentation s/p cath 12/03/2024:
CONCLUSIONS
1. Successful percutaneous coronary artery intervention of a hazy, ulcerated, 70% culprit plaque in mid to distal RCA with appearance of recent recanalization with one 3.0 x 38 mm Medtronic [place] drug-eluting stent, postdilated using IVUS guidance
with a 3.5 x 20 mm NC balloon at 18 jai distally and 20 jai proximally with an excellent angiographic result.
2. There is a known 100% mid left circumflex occlusion at the level of prior PCI which has been present on prior catheterization. OM1 has proximal 70 to 80% stenosis.
3. Ostial LAD has eccentric 30 to 40% stenosis. Proximal to mid LAD has eccentric 50 to 60% stenosis. Mid LAD has 90% stenosis just distal to previously placed stent.
4. Normal LVEDP at 12 mmHg
RECOMMENDATIONS
1. Uninterrupted dual antiplatelet therapy with daily baby aspirin and Brilinta along with Praluent and beta-jd as tolerated. Given he threw up soon after his loading dose of Brilinta in the emergency room, we will bridge with cangrelor
overnight with plan to reload 180 mg of Brilinta in the morning.
2. Wean radial band per protocol.
3. Echocardiogram to assess biventricular function and rule out any significant valvular abnormalities.
4. Staged PCI of mid to distal LAD +/- OM1.
5. Aggressive management of cardiovascular risk factors.
6. Eventual referral for outpatient cardiac rehab.
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
Subjective
Date of Service: December 06, 2024
-feels well
-no CP, palps, lightheadedness
Objective
Labs:
12/06/24 03:18
12/06/24 03:18
Labs
Hgb 12.9 g/dL (13.0-18.0) L 12/06/24 03:18
Hct 38.7 % (39.0-52.0) L 12/06/24 03:18
Plt Count 149 10^3/uL (130-400) 12/06/24 03:18
PT 13.7 Sec (11.4-14.6) 12/03/24 16:55
INR 1.00 12/03/24 16:55
APTT 24.3 Sec (23.4-35.0) 12/03/24 16:55
Sodium 142 mmol/L (135-145) 12/06/24 03:18
Potassium 3.8 mmol/L (3.5-5.1) 12/06/24 03:18
BUN 13 mg/dl (9-20) 12/06/24 03:18
Creatinine 1.1 mg/dL (0.7-1.3) 12/06/24 03:18
Glucose 97 mg/dl (70-99) 12/06/24 03:18
Troponins
12/03/24 12/03/24 12/04/24
16:55 23:09 04:25
Troponin I 0.110 H* 30.500 H* D 79.500 H* D
12/04/24
11:06
Troponin I 55.100 H* D
Vital Signs and I&O:
Vital Signs
Temp Pulse Resp BP Pulse Ox
98.3 F 62 18 134/81 94
12/06/24 08:10 12/06/24 04:30 12/06/24 08:10 12/06/24 03:22 12/06/24 08:10
Vital Signs
Temp Pulse Resp BP Pulse Ox
98.3 F 62 18 134/81 94
12/06/24 08:10 12/06/24 04:30 12/06/24 08:10 12/06/24 03:22 12/06/24 08:10
Intake & Output
12/04/24 12/05/24 12/06/24 12/07/24
06:59 06:59 06:59 06:59
Intake Total 240 / 240 500 / 500
Output Total 700 / 700 775 / 775 900 / 900
Balance -700 / -700 -535 / -535 -400 / -400
Physical Exam
Physical Exam
GEN: No distress, awake, Ox3
HEENT: supple, anicteric, mmm
LUNGS: CTA, no wheezes/rales
CV: Reg, S1/S2, 1/6 syst LSB, no murmur
ABD: soft, BS+, NT/ND
EXT: No edema. R radial cath site with bandage
NEURO: Gross non-focal
SKIN: No rash
[2024-12-06] MEDS: BRILINTA 90 MG PO (08:54)
[2024-12-06] MEDS: TOPROL XL 25 MG PO (08:54)
[2024-12-06] MEDS: PROTONIX 40 MG PO (08:54)
[2024-12-06] MEDS: LOW STRENGTH ASPIRIN 81 MG PO (08:54)
[2024-12-06 10:49] VITALS: BP 130/66
[2024-12-06] MEDS: KCL 20 MEQ PO (10:53)
[2024-12-08 08:49] LABS: ACT-LR - POC 313 Seconds (116-155)
[2024-12-08 08:49] LABS: ACT-LR - POC 290 Seconds (116-155)
[2024-12-08 08:50] LABS: ACT-LR - POC 340 Seconds (116-155)
[2024-12-08 08:50] LABS: ACT-LR - POC 294 Seconds (116-155)
[2024-12-08 08:50] LABS: ACT-LR - POC 287 Seconds (116-155)
[2024-12-08 08:50] LABS: ACT-LR - POC 318 Seconds (116-155)
--- NOTE | 2024-12-08 09:27 | W.DS.TRANS ---
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
-
Discharge Instructions:
Discharge Diagnosis/Procedures STEMI, angioplasty and stent to Right Coronary
artery (12/03/24), Angioplasty with stent to LAD
(12/05/24)
Diet Low Cholesterol
Driving Restrictions No driving for 24 hours
Other Services Cardiac Rehab
Instructions:
Stand-Alone Forms: DC Instructions- Cath/EP Lab
Changes to Home Medications: Yes
Discharge Medications:
DC Medications w/original date entered in [employer]
alirocumab 75 mg/mL subcutaneous pen injector (Praluent Pen) 75 mg INJ Q2W High cholesterol 03/07/18
aspirin 81 mg chewable tablet 81 mg PO DAILY #1 tab 12/05/24
metoprolol succinate 25 mg tablet,extended release 24 hr 25 mg PO DAILY #90 tabs 12/05/24
ticagrelor 90 mg tablet (Brilinta) 90 mg PO BID #60 tabs 12/05/24
Home Medication Changes
-new to Brilinta, aspirin, and Metoprolol
Pending Results: No
Total time spent discharging patient (in min): 20
== END 2024-12-06 11:43 | disposition home or self-care (01) | DRG 322 ==
LOC: IVU 18:56
PROVIDERS: Nurse Practitioner; Nurse Practitioner Adult Health; Nurse Practitioner Gerontology; ADMITTING PHYSICIAN Internal Medicine Interventional Cardiology; EMERGENCY PHYSICIAN Emergency Medicine
PROC: 4A023N7 Measurement of Cardiac Sampling and Pressure, Left Heart, Percutaneous Approach (ICD-10-PCS; 2024-12-03)
PROC: B2111ZZ Fluoroscopy of Multiple Coronary Arteries using Low Osmolar Contrast (ICD-10-PCS; 2024-12-03)
PROC: 027034Z Dilation of Coronary Artery, One Artery with Drug-eluting Intraluminal Device, Percutaneous Approach (ICD-10-PCS; 2024-12-03)
PROC: B2151ZZ Fluoroscopy of Left Heart using Low Osmolar Contrast (ICD-10-PCS; 2024-12-03)
PROC: B240ZZ3 Ultrasonography of Single Coronary Artery, Intravascular (ICD-10-PCS; 2024-12-03)
DX: I21.19 ST elevation (STEMI) myocardial infarction involving other coronary artery of inferior wall (principal); I47.29 Other ventricular tachycardia; N17.9 Acute kidney failure, unspecified; I25.10 Atherosclerotic heart disease of native coronary artery without angina pectoris; E78.00 Pure hypercholesterolemia, unspecified; G47.33 Obstructive sleep apnea (adult) (pediatric); I10 Essential (primary) hypertension; M19.90 Unspecified osteoarthritis, unspecified site; K21.9 Gastro-esophageal reflux disease without esophagitis; K22.70 Barrett's esophagus without dysplasia; M06.9 Rheumatoid arthritis, unspecified; E66.9 Obesity, unspecified; I25.5 Ischemic cardiomyopathy; I25.2 Old myocardial infarction; Z68.33 Body mass index [BMI] 33.0-33.9, adult; Z79.52 Long term (current) use of systemic steroids; Z79.899 Other long term (current) drug therapy; Z87.442 Personal history of urinary calculi; Z86.73 Personal history of transient ischemic attack (TIA), and cerebral infarction without residual deficits; Z91.148 Patient's other noncompliance with medication regimen for other reason; Z91.198 Patient's noncompliance with other medical treatment and regimen for other reason; Z95.5 Presence of coronary angioplasty implant and graft
CPT/HCPCS: 80048; 80053; 80061; 83036; 83735; 84484; 85025; 85027; 85347; 85610; 85730; 86803; 92978; 93005; 93306; 93458; 99152; 99153; 99283; C1725; C1753; C1874; C1894; C9460; C9600; C9606; Q9967

== ENCOUNTER 2024-12-14 01:59 | Inpatient (IN) | payer MEDICARE, OTHER, SELFPAY ==
[2024-12-13 23:44] VITALS: BP 141/84
[2024-12-14] VITALS (24 sets, daily range): BP systolic 79–158; BP diastolic 57–87; BMI 32.6
[2024-12-14] MEDS: NITROSTAT (SUBLINGUAL) 0.4 MG SL ×2 (00:05→03:27)
--- NOTE | 2024-12-14 00:06 | ED.GENMED ---
History of Present Illness
General
Chief Complaint: Chest Pain
Source: patient and spouse
Exam Limitations: none
Time Seen by Provider: 12/13/24 23:41
History of Present Illness
History of Present Illness:
79-year-old male relatively sudden onset of upper chest pain with radiation to the shoulders and bilateral neck about 1 hour prior to ER arrival. No nausea diaphoresis or shortness of breath. States he feels somewhat similar to his recent STEMI
GA. Symptoms have not changed significantly over the last hour. No pleuritic pain no back pain no shearing pain no headache or neurologic symptoms. Patient was recently discharged on December 06 after an acute inferior ST elevation GA. Initially
had stenting to the mid to distal RCA. 2 days later had stenting of the LAD. Patient is on Brilinta and aspirin.
Past History
Past History
ED Past Medical History: CAD, CVA, GERD, HTN, Hypercholesterolemia, GA, Other (Sepsis March 2021, kidney stones, spinal stenosis, arthritis, chronic hearing impaired), Other and Other
ED Past Surgical History: Appendectomy, Cardiac (PTCA with stent), Cholecystectomy, Orthopedic, Urological (Kidney stone removal) and Other
Patient has exhibited threatening behavior?: No
PSI?: No
Social History
Tobacco: Non-smoker
Alcohol: None
Drug: None
Personal:
Living: with family
Employment: Retired
Family History
Family History: Hypertension
Review of Systems
Review of Systems
All Other Systems: Not applicable
Constitutional: Denies fever
ABD/GI: Reports no symptoms; Denies bloody stools or black stools
Phy Exam
Physical Exam
Physical Exam:
GENERAL: Alert and oriented in no apparent distress. Hard of hearing
EYE: Orbits normal.
NECK: Supple, no significant adenopathy.
ENT: Pharynx without erythema
CARDIAC: Regular rate and rhythm without any obvious murmurs. Equal pulses bilaterally
LUNGS: Clear breath sounds,normal
ABDOMEN: Soft, without focal tenderness or distention
NEUROLOGICAL: Alert and oriented , grossly non-focal
SKIN: Warm and dry, no rash or lesion, no discoloration, skin intact.
MUSCULOSKELETAL: No edema,no deformity.Good color
PSYCH: Normal and appropriate interaction.
Scores
Heart Score for Chest Pain Patients
STEMI patient?: No
History: Highly Suspicious
ECG: Nonspecific Repolarization
Age: >/= 65 years
Risk Factors: >/= 3 Risk Factors or History of CAD
Troponin: >1 - <3 x Normal Limit
Heart Score for Chest Pain Patients: 8
Heart Score Risk: 72.7 % MACE over next 6 weeks
Course
Orders/Labs/Results
Orders:
Orders
12/13/24 23:42
Electrocardiogram (*1) Urgent
Reason for Study: Chest Pain
EKG- Treatment ONCE
O2 Therapy [RESP] Urgent
Titrate/Wean O2 to maintain O2 sat greater than (%): 90
Special Instructions: Maintain sats >/=90%
12/13/24 23:45
Heparin 84490 Units/250 ml 25,000 units in 250 ml IV PER PROTOCOL
Weight to be used for heparin protocol in kilograms (kg):: 110.7
Protocol:: Cardiac Tx/Acute Coronary
PTT Goal Range to be used:: PTT 73 to 111 seconds
Order type:: Initial
INITIAL Infusion Dose (UNITS/KG/hr) & then follow protocol:: 12 units/kg/hr
Infusion Dose in UNITS/hr & then follow protocol (UNITS/hr):: 1,000
INFUSION RATE in mL/hr & then follow protocol (mL/hr):: 10
PTT less than or equal to 64 seconds:: Increase rate by 200 units/hr (+ 2 mL/hr)
PTT 64.1 to 72.9 seconds:: Increase rate by 100 units/hr (+ 1 mL/hr)
PTT 73 to 111 seconds:: Target Range. No change in rate.
PTT 111.1 to 130.9 seconds:: Decrease rate by 100 units/hr (- 1 mL/hr)
PTT 131 to 199.9 seconds:: HOLD for 1 hr. Then decrease rate by 200 units/hr (- 2 mL/hr)
PTT greater than or equal to 200 seconds:: HOLD for 2 hrs & Notify Provider. Then decrease by 200 units/hr (-
2 mL/hr)
Lab follow-up:: Each change, PTT q6h until 2 consecutive are therapeutic. Then PTT
daily.
12/13/24 23:49
Cardiac Monitoring- Treatment ONCE
IV Insert/Care/Rem.- Treatment PRN
Nitroglycerin 100 mg/250 ml [Nitroglycerin Premix] 100 mg in 250 ml IV NOW
Initial dose in mcg/min, then titrate:: 5
Titrate to keep:: Chest Pain Free
Titrate by mcg/min:: 5 mcg/min, may increase by 10 mcg/min if dose > 20 mcg/min
Frequency of titrations (minutes):: every 3-5 minutes
Maximum dose in mcg/min:: 200
Begin to taper infusion when:: Remained at goal for 2hrs
Taper by mcg/min:: 5 mcg/min
Frequency of taper (minutes) if patient maintains goal:: 30
Taper to off?: Yes
If infusion off & no longer maintaining goal:: Contact Provider
Nitroglycerin Sublingual [Nitrostat (Sublingual)] 0.4 mg SL NOW STA
CR Chest Portable - 1 View Urgent
Comment:
Reason For Exam: cp
Reason Study Needs to be Portable: Patient Unstable
12/13/24 23:55
Complete Blood Count/With Diff Urgent
Comprehensive Metabolic Panel Urgent
Troponin I Urgent
12/13/24 23:56
PTT Urgent
Comment: Obtain baseline before beginning heparin infusion if not already collected
12/13/24 23:57
Heparin 4,000 units IV NOW STA
Nursing to Place Non Medication Order As Directed
Physician Order: PTT 6 hours after initial start of Heparin infusion
Above order entered?: Yes
12/14/24 00:17
EKG [Electrocardiogram (*1)] Urgent
Reason for Study: Chest Pain
12/14/24 00:18
EKG- Treatment ONCE
12/14/24 00:23
Acetaminophen 1000MG/100Ml [Ofirmev] 1,000 mg in 100 ml .ROUTE .STK-MED
12/14/24 00:26
Acetaminophen 1000MG/100Ml [Ofirmev] 1,000 mg IV NOW STA
12/14/24 00:49
CT Head W/o Iv Contrast Urgent
Comment:
Reason For Exam: Headache
12/14/24 01:00
Flush (0.9% Sodium Chloride) [Flush (Nss)] See Dose Instructions IV PER PROTOCOL
12/14/24 01:41
Admit/Transfer Patient As Directed
Co-Sign Provider:
Level of Care: Inpatient admission
Assign to:: IVU
Physician / Group: [facility]
Diagnosis: ACS
Reason for Hospitalization: ACS
Expected length of stay greater than two midnights?: Yes
ELOS- Estimated Length of Stay in days: 3
I certify the patient meets the requirements for IP care: Yes
PRN Pain Medication Management As Directed
May give lesser potent ordered pain med per pt: Yes
preference::
Protocol:: Medication orders for pain may be administered in a
manner that supports deferring to patient preference
when the pt is:
- Requesting an ordered lesser potent pain medication.
Least to most potent pain medications are defined
as: acetaminophen < NSAID < tramadol < opioids
(morphine, oxycodone, hydromorphone).
- Requesting a lesser dose of the same medication IF
ORDERED.
- Requesting a less intrusive route of administration
if both routes are prescribed by the provider (PO <
IV).
12/14/24 01:42
Code Status As Directed
Resuscitation Status: Full Code
12/14/24 02:00
Troponin I Urgent
12/14/24 02:59
Acetaminophen [Tylenol] 650 mg PO Q4HPRN PRN
Nitroglycerin Sublingual [Nitrostat (Sublingual)] 0.4 mg SL [id number] PRN
12/14/24 02:59
CARDIOLOGY CONSULT Routine
Consulting Provider: Bogdan Walters
Was physician already notified: Yes
Reason for consult: ACS, s/p recent stent
Heparin Protocol- PTT Orders As Directed
PTT per Heparin protocol: -Obtain CBC and baseline PTT - if not already collected.
-Obtain PTT 6 hours from start of infusion. Then, every 6 hours until 2 consecutive
PTT's are therapeutic. Then, PTT Daily.
-With each rate change, obtain PTT every 6 hours until 2 consecutive PTT's are
therapeutic. Then, PTT Daily.
Activity As Directed
Activity Level: Ambulate
With Assistance
Bladder Scan As Directed
Follow Bladder Retention/Intermittent Cath Algorithm?: Yes
PRN if no void in __ hours: 6
Frequency: Per Retention Algorithm
If Bladder Scan Result >: 400
then:: Straight cath
EKG with chest pain [ECG as needed] As Directed
ECG as needed for:: Chest Pain
I/O [Intake/ Output] As Directed
Frequency: Per unit guidelines
Notify MD As Directed
Notify physician if: PTT is greater than or equal to 200.
Straight Cath As Directed
Frequency: Per Retention Algorithm
Additional Instructions: straight cath as needed per acute urinary retention algorithm for 24 hrs
Additional Instructions: for bladder scan greater than 400 mL
Vital Signs As Directed
Frequency: Per unit guidelines
Weight As Directed
Frequency: Daily
Oxygen Therapy [O2 Therapy] [RESP] Routine
Titrate/Wean O2 to maintain O2 sat greater than (%): 94
12/14/24 03:24
Basic Metabolic Panel IN AM
Complete Blood Count/No Diff IN AM
Troponin I Q6H
12/14/24 06:00
EKG [Electrocardiogram (*1)] IN AM
Reason for Study: Chest Pain
NPO
Allow oral meds: Yes
Allow clear liquids: Sips of Clears
12/14/24 06:21
PTT Urgent
12/14/24 08:00
Aspirin Chewable [Low Strength Aspirin] 81 mg PO DAILY
Metoprolol Xl [Toprol Xl] 25 mg PO DAILY
Pantoprazole [Protonix] 40 mg PO DAILY
Ticagrelor [Brilinta] 90 mg PO BID
12/16/24 06:00
Complete Blood Count/No Diff Q2D
Comment: notify provider: Platelet count < 130,000 or decrease by 50% from baseline
12/18/24 06:00
Complete Blood Count/No Diff Q2D
Comment: notify provider: Platelet count < 130,000 or decrease by 50% from baseline
12/20/24 06:00
Complete Blood Count/No Diff Q2D
Comment: notify provider: Platelet count < 130,000 or decrease by 50% from baseline
12/22/24 06:00
Complete Blood Count/No Diff Q2D
Comment: notify provider: Platelet count < 130,000 or decrease by 50% from baseline
12/24/24 06:00
Complete Blood Count/No Diff Q2D
Comment: notify provider: Platelet count < 130,000 or decrease by 50% from baseline
12/26/24 06:00
Complete Blood Count/No Diff Q2D
Comment: notify provider: Platelet count < 130,000 or decrease by 50% from baseline
12/28/24 06:00
Complete Blood Count/No Diff Q2D
Comment: notify provider: Platelet count < 130,000 or decrease by 50% from baseline
12/30/24 06:00
Complete Blood Count/No Diff Q2D
Comment: notify provider: Platelet count < 130,000 or decrease by 50% from baseline
Abnormal Lab Results
12/13/24
23:55
RBC 4.57 L 10^6/uL
(4.70-6.10)
MPV 11.0 H fL
(7.4-10.4)
Abs Immat Gran (auto) 0.1 H 10^3/uL
(0-0.05)
Immature Gran % 1.1 H %
(0-0.5)
Lymphocytes % 18.4 L %
(20.5-51.1)
Chloride 111 H mmol/L
(98-107)
BUN 21 H mg/dl
(9-20)
Glucose 120 H mg/dl
(70-99)
Troponin I 0.065 H* ng/ml
Total Protein 5.9 L g/dl
(6.3-8.2)
12/13/24 23:55
12/13/24 23:55
Vital Signs
Initial and Last Documented VS:
Initial Vital Signs
Temp Pulse Resp BP Pulse Ox
97.9 F 81 18 141/84 96
12/13/24 23:44 12/13/24 23:44 12/13/24 23:44 12/13/24 23:44 12/13/24 23:44
Last Documented Vital Signs
Temp Pulse Resp BP Pulse Ox
97.6 F 63 16 117/76 99
12/14/24 07:58 12/14/24 11:55 12/14/24 07:58 12/14/24 11:55 12/14/24 07:58
MDM/Problems Addressed
Differential Diagnosis Includes:
Patient describing sudden symptoms consistent with his previous angina symptoms. Highly doubt dissection. He has no shearing pain back pain. Chest x-ray does not show any widened mediastinum. Cardiology was involved from the get go. EKG sent to
cardiology. We will start nitroglycerin and heparin. Patient will be admitted. Troponin pending.
*Pulse Oximetry
Patient hypoxic: no
*EKG
Interpreted by ED Provider?: Yes
Interpretation: abnormal
Comparison EKG: no changes
Heart Rate: 76
Rate: normal
Rhythm: sinus
[place]: left axis deviation
Interval: first degree heart block
QRS Pattern: normal QRS
Ischemia: non-specific ST changes
*[employer] Interpretation
Rate: normal
Interpretation: normal
Heart Rate: 74
Rhythm: sinus
*Critical Care Note
Total Time (30-74mins, 75-104mins- exclusive of procedures): 45
Data Reviewed
Review of Other/Old Records Reveals: Labs, Records, Radiology Studies, Operative Reports (Cardiac cath report) and Discharge Summary
Update Note
Update Note:
0015... Blood pressure dropped after sublingual nitroglycerin. Will give a small fluid bolus and hold on nitroglycerin drip for now
0030... Patient with some recurrent chest discomfort. Blood pressure has improved. Repeat EKG done with no significant changes.
0050.... Complaining of still having some right hide sided headache. I initially felt this was likely related to the nitroglycerin. However for completeness he will do a CT of the head
ED Attending Note
-
Portions of this chart may have been created with voice recognition software.� Occasional wrong word or��sound alike� substitutions may have occurred due to the inherent limitations of voice recognition software.
Discharge Plan
Departure
Patient Disposition: Admit
Date of Disposition: 12/14/24
Time of Disposition: 00:50
Presentation/result/management discussed w/ accepting MD/DO: Cardiology
Discharge Problem:
Chest pain/possible unstable angina, Recent cardiac stenting
Interventions
Interventions:
*Risk Screen - Suicide Last Done: 12/13/24 23:44
*General Assessment Last Done: 12/13/24 23:44
*Neglect/Abuse Screening Last Done: 12/13/24 23:44
*ED- Fall Risk Assessment Last Done: 12/13/24 23:44
*ED COVID-19 Vaccine History Last Done: 12/13/24 23:44
*Nursing Disposition Last Done: 12/14/24 03:02
ED- Cardiac Assessment Last Done: 12/13/24 23:44
Discharge Date and Time
Discharge Date/Time: 12/14/24 03:00
[2024-12-14 00:08] LABS: % Basophils 0.7 % (0-2); % Eosinophils 2.4 % (0-6); % Immature Granulocytes 1.1 % (0-0.5); % Lymphocytes 18.4 % (20.5-51.1); % Monocytes 7.8 % (1.7-9.3); % Neutrophils 69.6 % (42.2-75.2); Absolute Basophils 0.1 10^3/uL (0-0.2); Absolute Eosinophils 0.2 10^3/uL (0-0.7); Absolute Immature Granulocytes 0.1 10^3/uL (0-0.05); Absolute Lymphocytes 1.4 10^3/uL (1.2-3.4); Absolute Monocytes 0.6 10^3/uL (0.1-0.6); Absolute Neutrophils 5.2 10^3/uL (1.4-6.5); Hematocrit 40.8 % (39.0-52.0); Hemoglobin 13.8 g/dL (13.0-18.0); Mean Corp Hgb Conc. 33.8 g/dL (33.0-37.0); Mean Corpuscular Hgb 30.2 pg (27.0-31.0); Mean Corpuscular Volume 89.3 fL (80.0-94.0); Nucleated Red Blood Cells % 0 % (-); Platelet Count 189 10^3/uL (130-400); Red Blood Cell Count 4.57 10^6/uL (4.70-6.10); Red Cell Dist. Width 14.4 % (11.5-14.5); White Blood Cell Count 7.4 10^3/uL (4.8-10.8)
[2024-12-14 00:20] LABS: APTT 30.6 Sec (23.4-35.0)
[2024-12-14 00:23] LABS: ALT (SGPT) 13 U/L (0-50); AST (SGOT) 18 U/L (17-59); Albumin 3.6 g/dl (3.5-5.0); Alkaline Phosphatase 67 U/L (38-126); Blood Urea Nitrogen 21 mg/dl (9-20); Calcium 8.9 mg/dl (8.4-10.2); Carbon Dioxide 23 mmol/L (22-30); Chloride 111 mmol/L (98-107); Estimated Creatinine Clearance 71 ml/min; Glucose 120 mg/dl (70-99); Potassium 4.2 mmol/L (3.5-5.1); Sodium 142 mmol/L (135-145); Total Bilirubin 1.2 mg/dl (0.2-1.3); Total Protein 5.9 g/dl (6.3-8.2); eGFR > 60.00
[2024-12-14] MEDS: OFIRMEV 1000 MG IV (00:26)
[2024-12-14] MEDS: HEPARIN 4000 UNITS IV (00:29)
[2024-12-14] MEDS: HEPARIN 25000 UNITS/250 ML IV ×2 (00:32→19:24)
[2024-12-14 00:37] LABS: Troponin I 0.065 ng/ml
--- NOTE | 2024-12-14 01:45 | HPS.HSE ---
Family Physician
-
Family Physician: Henry Gudino
Chief Complaint
-
Chest Pain
History of Present Illness
Patient is a 79y M with PMH significant for ASCVD including recent STEMI with RCA and LAD stents who presents to ED complaining of neck pain, chest pain this evening. Patient states that he had been feeling well s/p his recent hospitalization.
This evening he was lying in bed when he developed pain in the neck extending along both sides and into his chest and upper back. He felt 'odd' though he denies any dyspnea, diaphoresis, nausea, etc. He presented to the ED for further evaluation.
Patient received NTG in the ED with improvement in his pain syndrome. He did develop a headache briefly after NTG - this has since resolved.
At the time of my examination patient is resting comfortably with no pain.
Patient was admitted 12/03 - 12/06 secondary to STEMI.
He underwent cardiac cath on 12/03 with stent to the RCA.
He underwent repeat cath on 12/05 with stent to the LAD. Intervention was also attempted to the OM1; however, this was unsuccessful.
Medical History
Past Medical History
Past Medical History: Reports Other
Additional Past Medical History:
ASCVD (CAD, CVA)
JOVANNI on CPAP
Nephrolithiasis
Hypertension
GERD / [place]'s Esophagus
Parotid Tumor s/p Surgery and XRT
Past Surgical History: Reports Other
Additional Past Surgical History:
PTCA with Stents
Parotid Gland Resection
Appendectomy
Left Shoulder Surgery
Cataracts
Cholecystectomy
Right TKA
Laminectomy
Social History
Tobacco: Non-smoker
Alcohol: None
Drug: None
Family History
Family History: Not pertinent
Allergies / Home Medications
Allergies reflects when Allergies were last updated in [facility].
Home Medications with original date entered in [facility]
Allergy/Medication List:
Allergies
Allergy/AdvReac Type Severity Reaction Status Date / Time
codeine Allergy Rash Verified 12/13/24 23:44
lisinopril Allergy cough Verified 12/13/24 23:44
niacin [Niacin] Allergy Itching Verified 12/13/24 23:44
Kwfrlqc-QVO-RfW Reductase Allergy musle Verified 12/13/24 23:44
Inhibitor weakness,soreness
[Hsfzjgy-Yls-Hvm Reductase
Inhibitor]
Home Medications
alirocumab 75 mg/mL subcutaneous pen injector (Praluent Pen) 75 mg INJ Q2W High cholesterol 03/07/18
aspirin 81 mg chewable tablet 81 mg PO DAILY #1 tab 12/05/24
metoprolol succinate 25 mg tablet,extended release 24 hr 25 mg PO DAILY #90 tabs 12/05/24
ticagrelor 90 mg tablet (Brilinta) 90 mg PO BID #60 tabs 12/05/24
Review of Systems
-
History Source: Patient
A 12 point ROS was completed and negative except as noted: Yes
Constitutional: Reports Fatigue; Denies Fever or Chills
EENT: Denies Sore Throat
Respiratory: Denies Cough or Trouble Breathing
Cardiac: Reports Chest Pain; Denies Diaphoresis, Palpitations or Syncope
Abdomen/GI: Denies Abdominal Pain, Nausea, Vomiting or Diarrhea
: Denies Dysuria or Frequency
Musculoskeletal: Denies Joint Pain or Edema
Neurological: Denies Dizzy or Headache
Psych: Denies Depression or Anxiety
Physical Exam
Vital Signs
Vital Signs
Temp Pulse Resp BP Pulse Ox
97.9 F 66 18 101/62 97
12/13/24 23:44 12/14/24 01:30 12/14/24 01:30 12/14/24 01:15 12/14/24 01:30
Physical Exam
General: Other (79y M in no acute distress.)
HEENT: Moist mucous membranes, PERRLA and Other (SHISHMAREF IRA)
Respiratory: Clear; No Wheezes, Rales or Rhonchi
Cardiac: S1/S2 and Regular Rhythm; No Murmur
GI: Soft, Non Tender, Non Distended and Normal Bowel Sounds
Musculoskeletal: No Clubbing, No Cyanosis and No Edema
Neuro: AO x 3
Laboratory Results
-
12/13/24 23:55
12/13/24 23:55
Laboratory Results
APTT 30.6 Sec (23.4-35.0) 12/14/24 00:00
Total Bilirubin 1.2 mg/dl (0.2-1.3) 12/13/24 23:55
AST 18 U/L (17-59) 12/13/24 23:55
ALT 13 U/L (0-50) 12/13/24 23:55
Alkaline Phosphatase 67 U/L (38-126) 12/13/24 23:55
Troponin I 0.065 ng/ml H* 12/13/24 23:55
Impression/Plan
-
A/P: Patient is a 79y M with PMH significant for ASCVD s/p recent STEMI / cath / stent who presents to ED complaining of jaw pain / back pain / chest pain.
Atypical Chest Pain
ASCVD
s/p Coronary Stents 12/03 and 12/05
- Admit for further evaluation and treatment.
- EKG unremarkable. Initial troponin is 0.065 compared to recent peak of 79.5 (12/04).
- Pain free at present.
- OM1 lesion seen on recent cath with plan for eventual intervention if anginal symptoms returned.
- IV heparin overnight.
- Continue DAPT, metoprolol, etc.
- Cardiology consulted for additional recommendations.
Benign Hypertension
- Stable. Continue metoprolol.
JOVANNI on CPAP
- Stable. Continue nightly PAP therapy.
GERD
- Stable. Would start PPI daily while on DAPT.
DVT Prophylaxis: On IV heparin
Code Status: Full
[2024-12-14 02:34] LABS: Troponin I 0.074 ng/ml
[2024-12-14] MEDS: MORPHINE SULFATE 2 MG IV (03:14)
--- NOTE | 2024-12-14 03:43 | PTCARENOTE ---
pt arrived from ed actively having chest pain that restarted on way up from ed- oxygen applied- morphine given without relief. nitro x1 given- chest pain resolved- pt has headache- afebrile bp wnl
[2024-12-14 03:46] LABS: Hemoglobin 13.4 g/dL (13.0-18.0); Mean Corp Hgb Conc. 33.5 g/dL (33.0-37.0); Mean Corpuscular Hgb 29.8 pg (27.0-31.0); Mean Corpuscular Volume 88.9 fL (80.0-94.0); Mean Platelet Volume 11.4 fL (7.4-10.4); Platelet Count 170 10^3/uL (130-400); Red Cell Dist. Width 14.3 % (11.5-14.5); White Blood Cell Count 7.6 10^3/uL (4.8-10.8)
[2024-12-14 04:30] LABS: Blood Urea Nitrogen 21 mg/dl (9-20); Carbon Dioxide 24 mmol/L (22-30); Chloride 112 mmol/L (98-107); Estimated Creatinine Clearance 65 ml/min; Glucose 103 mg/dl (70-99); Potassium 4.3 mmol/L (3.5-5.1); Sodium 142 mmol/L (135-145); eGFR > 60.00
[2024-12-14 04:41] LABS: Troponin I 0.072 ng/ml
--- NOTE | 2024-12-14 05:23 | PTCARENOTE ---
and daughter went home. request to be called if with any intervention plans if any at [phone]- diane('s cell). pt is free of chest pain currently, vitals wnl
[2024-12-14 06:47] LABS: APTT 62.2 Sec (23.4-35.0)
[2024-12-14] MEDS: TOPROL XL 25 MG PO (07:59)
[2024-12-14] MEDS: PROTONIX 40 MG PO (07:59)
[2024-12-14] MEDS: BRILINTA 90 MG PO ×2 (07:59→19:24)
[2024-12-14] MEDS: LOW STRENGTH ASPIRIN 81 MG PO (08:00)
--- NOTE | 2024-12-14 12:12 | W.PN.UPDATE ---
Update Note
Progress Note Update
H&P from 0145 this morning. I have reviewed the patient's chart and independently evaluated him at the bedside.
79-year-old male with CAD s/p recent STEMI with PCI to RCA (12/03) and LAD (12/05), JOVANNI on CPAP, hypertension, GERD/PE, statin allergy, H/O parotid tumor s/p resection and XRT presented to the hospital with chest pain that awoke him from sleep.
Recently discharged following ACS. Last [facility] note mentions OM1 lesion was unable to be stented, would consider attempt at revascularization if recurrent pain. AFVSS through ED course. On arrival ECG without new ischemic changes, troponin initially
0.065 compared to most recent value of 79.5 on 12/04. Chest pain improved and resolved as of morning 12/14. Troponin trend 0.065�0.074�0.072. Admitted to IV and resumed on home CAD regimen. Cardiology consulted
On exam he appears euvolemic, normal cardiopulmonary exam.
Chest pain. Differentials include angina v. OM1 ACS v. Postprocedural pericarditis. Patient unable to state if pain is positional component. Continue DAPT with Brilinta and aspirin, beta-jd, OP [id number] (at DC). Keep n.p.o. for
consideration of C. Consider TTE to assess perfusion. Continue on telemetry
Full code
Likely discharge 24 to 48 hours
--- NOTE | 2024-12-14 12:35 | CON.CAR ---
Consultation
Consultation Request
Date/Time Consultation Requested: 12/13/2024 10 PM
Date/Time Consultation Performed: 01/04 9 AM
Requesting Provider: Dr. Medina
Performing Provider: Dr. Ana Walters
Reason for Consultation: Chest pain
Medical History
-
Chief Complaint: Chest pain
History of Present Illness:
He tells me he was at home last night and felt poorly and so was laying down in his bed. He could not be more specific initially but then stated he had right upper chest discomfort that was different than the left sided chest discomfort with recent
acute myocardial infarction and stenting. This extended to his right upper arm into his right neck. He feels that this may have been relieved by sublingual nitroglycerin in the emergency department (according to notes waxed and waned). According
to notes blood pressure dropped at that time and he received a fluid bolus. Given that he was still having right sided headache which was felt to be sublingual nitroglycerin related for completeness in the emergency department he underwent a head CT
scan which was negative for acute.
On presentation to the interventional care unit 3 AM given chest pain morphine was given without relief. He was given sublingual nitroglycerin.
He has no new neurologic symptoms except headache since nitroglycerin use at 3 AM. EKG is without acute abnormality. Troponin continues to downtrend from initial myocardial infarction 0.074 peak. He currently denies palpitations and dizziness.
No recurrence of upper chest, neck or upper arm symptoms. With manipulation of his right shoulder he has pain. He does recall that his arms were outstretched during the catheterization and this was bothersome to him. As noted second
catheterization 12/05/2024 OM1 intervention was aborted given inability to wire and right arm pain experienced by the patient at that time.
Recent history, he was recently admitted to the hospital 12/03/2024 and underwent to separate cardiac catheterizations and interventions and was discharged home 12/06/2024. He initially presented at that time with inferior posterior ST elevations on
EKG and was brought urgently to the cardiac company laborer. He was found to have ulcerated, hazy mid to distal RCA lesion, which Appeared ulcerated, and underwent successful stenting with a single drug-eluting stent. He had residual LAD and OM disease,
and he was brought back to the lab on 12/05/2024 and underwent successful stenting to the LAD (peak troponin 79.5). The OM was unable to be wired and given patient's arm pain plan was to treat medically at this time.
Last admission 11/2024 his echocardiogram showed an EF of 50-55% with inferior hypokinesis and mild LVH.
Past Medical History
Past Medical History: CAD (12/2011 unsuccessful PCI with occlusion of OM 2 postprocedure. 05/21/[address] WI I PCI RCA and PCI to LAD. 11/[address] elevation WI PCI RCA, separate cath 11/2024 PCI LAD), CVA (2014), HTN,
Hypercholesterolemia and Other (Sleep apnea on CPAP, diverticulitis, arthritis, GERD)
Past Surgical History: Appendectomy, Cholecystectomy and Other (Parotid tumor resection and radiation, kidney stone removal)
Social History
Tobacco: Non-Smoker
Alcohol: None
Personal:
Living: With Family
Employment: Retired
Family History
Family History: Reviewed & Not Pertinent
Allergies / Home Medications
Allergy/AdvReac Type Severity Reaction Status Date / Time
codeine Allergy Rash Verified 12/13/24 23:44
lisinopril Allergy cough Verified 12/13/24 23:44
niacin [Niacin] Allergy Itching Verified 12/13/24 23:44
Cjxmkpx-BXV-VjF Reductase Allergy musle Verified 12/13/24 23:44
Inhibitor weakness,soreness
[Rtfzlmh-Bcy-Rsu Reductase
Inhibitor]
�Medication �Instructions �Recorded �Confirmed �Type
alirocumab 75 mg/mL subcutaneous 75 mg INJ Q2W High cholesterol 03/07/18 12/14/24 History
pen injector (Praluent Pen)
aspirin 81 mg chewable tablet 81 mg PO DAILY #1 tab 12/05/24 12/14/24 Rx
metoprolol succinate 25 mg 25 mg PO DAILY #90 tabs 12/05/24 12/14/24 Rx
tablet,extended release 24 hr
ticagrelor 90 mg tablet (Brilinta) 90 mg PO BID #60 tabs 12/05/24 12/14/24 Rx
Review of Systems
-
History Source: Patient
All other systems: Negative unless noted
Cardiac: Chest Pain
Neurological: Headache
Physical Exam
Vital Signs
Temp Pulse Resp BP Pulse Ox
97.6 F 63 16 117/76 99
12/14/24 07:58 12/14/24 11:55 12/14/24 07:58 12/14/24 11:55 12/14/24 07:58
Lab Results
12/14/24 03:24
12/14/24 03:24
Troponin I Cancelled 12/14/24 14:59
General: Well developed, well nourished in NAD.
Heart: Non displaced PMI, RRR, no murmurs, No S3, S4, no rubs.
Lungs: Clear to auscultation bilaterally, no wheeze, rhonchi, rubs bilaterally,
Extremities: No clubbing, cyanosis or edema bilaterally.
Neuro: Grossly nonfocal, awake,
Right wrist with ecchymosis. Right radial pulse +2. Right antecubital fossa minimal ecchymosis pulse +2. Right carotid pulse +2 no bruit..
Impression / Plan
-
.Impression / Plan
-
PCP: Henry Gudino MD
CDY: Uriel Wheatley MD
IMPRESSION:
Chest discomfort, right-sided
Headache
Recent acute inferior STEMI 12/03/2024 with RCA intervention DESx1, staged 12/05/2024 LAD intervention and aborted OM1 intervention. Residual OM1 70-80% stenosis
CAD/[place] - 05/21/2018 inferior STEMI PCI RCA [id number] Xience KSENIA and PCI LAD 3.0x33mm Xience KSENIA
12/28/2011 Unsuccessful PCI with occlusion of OM2 post procedure
Post cath KEITH Cr 1.5 on admission down to 1.2
CVA 2014
Hyperlipidemia statin intolerant
JOVANNI/CPAP
GERD/BE
Arthritis
Diverticulitis
Parotid tumor resection and radiation
Obesity
Hearing loss uses hearing aids
Echo 11/30/24: LVEF 50-55%. Inferior wall hypokinesis. Mild concentric left ventricular hypertrophy. Normal right ventricle. Aortic sclerosis without stenosis.
PLAN:
He presented 'feeling poorly 'and had developed right upper chest discomfort into his neck and arm which may have been relieved by sublingual nitroglycerin in the ER but low blood pressure noted. He then had recurrence 3 AM on transfer to the
interventional care unit which was not relieved by morphine. Sublingual nitroglycerin given which may or may not have been helpful. He did have a headache in the ER and CT scan of the head was negative. This morning he still had headache which he
attributed to sublingual nitroglycerin. This does not clearly represent acute coronary syndrome. Troponins continue to downtrend from initial , EKG although abnormal is without change and multiple EKGs performed and reviewed personally
by me. Currently he is asymptomatic. Full vascular exam is negative except for ecchymosis right radial wrist site and right brachial artery. Pulses and capillary refill are intact. He feels his headache has improved also at the current time.
Given right wrist manipulation for cardiac catheterization x 2, right upper chest, arm and neck symptoms along with headache (negative CT scan of the head) would exclude vascular abnormality although exam is without acute abnormality. Patient will
undergo CTA of the chest to rule out aorta abnormality/large branch vessel abnormality/dissection.
Discussed at length with the patient, relayed to nursing and I have also reached out to primary service through secure texting.
Headache
Seems to be improved. Follow-up with primary service.
Initial CT scan of the head negative.
Distant history of CVA. No new neurologic symptoms clinically.
May have been secondary to nitroglycerin and low blood pressure.
Coronary artery disease status post recent acute inferior wall WI
Post PCI RCA x 1 KSENIA on 12/03/2024 with staged PCI mid LAD x 1 KSENIA 12/05/2024 troponin peak 79.5
DAPT ASA/Brilinta
Continue aggressive risk factor modification.
LDL 49, continue Praluent at d/c
Continue current medications.
Renal insufficiency post cath KEITH
Creatinine currently stable continue to follow with upcoming CT scan.
Sleep apnea noted
CVA 2014
Continue risk factor modification
EKGs independently reviewed by me and stable
Telemetry independently reviewed by me and stable
Previous documentation s/p cath 12/03/2024:
CONCLUSIONS
1. Successful percutaneous coronary artery intervention of a hazy, ulcerated, 70% culprit plaque in mid to distal RCA with appearance of recent recanalization with one 3.0 x 38 mm Medtronic [place] drug-eluting stent, postdilated using IVUS guidance
with a 3.5 x 20 mm NC balloon at 18 jai distally and 20 jai proximally with an excellent angiographic result.
2. There is a known 100% mid left circumflex occlusion at the level of prior PCI which has been present on prior catheterization. OM1 has proximal 70 to 80% stenosis.
3. Ostial LAD has eccentric 30 to 40% stenosis. Proximal to mid LAD has eccentric 50 to 60% stenosis. Mid LAD has 90% stenosis just distal to previously placed stent.
4. Normal LVEDP at 12 mmHg
Previous documentation cardiac catheterization 12/05/24:
CONCLUSIONS
1. Successful staged percutaneous coronary artery intervention of a 90% mid LAD stenosis with one 3.0 x 22 mm Medtronic [place] drug-eluting stent, postdilated using IVUS guidance with 3.25 x 20 mm NC balloon at 22 jai with an excellent angiographic
and IVUS based result.
2. Widely patent mid RCA stent from December 03, 2024.
3. 70-80% ostial OM1 stenosis. Attempted percutaneous intervention however given difficulty wiring the lesion due to significant calcium at the ostium, and patient developing right upper extremity discomfort, attempts were aborted.
Data Reviewed
-
EKG: Tracing Personally Visualized and interpreted and Report Reviewed by me
Radiology: Image Personally Visualized and interpreted and Report Reviewed by me
Labs: Labs Reviewed by me
Old Records: Requested and Reviewed
Total Time Spent with Patient (in minutes): 76
[2024-12-14] MEDS: TYLENOL 650 MG PO (14:03)
[2024-12-14 14:24] LABS: APTT 66.9 Sec (23.4-35.0)
--- NOTE | 2024-12-14 18:40 | PTCARENOTE ---
Pt denied any chest discomfort, c/o 11/20 headache which resolved after tylenol. Pt very tired. Troponins peaked at 0.074. Heparin infusion not yet therapeutic. Pt had CT scan of his chest done. Telemetry shows sinus rhythm with first degree AV block
at a rate of 49-60's. Plan for ECHO on 12/15.
[2024-12-14 22:08] LABS: APTT 75.7 Sec (23.4-35.0)
[2024-12-15 02:38] VITALS: BP 104/64
[2024-12-15 02:45] VITALS: BMI 32.9
[2024-12-15 03:19] LABS: % Basophils 0.8 % (0-2); % Eosinophils 2.8 % (0-6); % Immature Granulocytes 0.9 % (0-0.5); % Lymphocytes 16.5 % (20.5-51.1); % Monocytes 7.6 % (1.7-9.3); % Neutrophils 71.4 % (42.2-75.2); Absolute Basophils 0.1 10^3/uL (0-0.2); Absolute Eosinophils 0.2 10^3/uL (0-0.7); Absolute Immature Granulocytes 0.1 10^3/uL (0-0.05); Absolute Lymphocytes 1.2 10^3/uL (1.2-3.4); Absolute Monocytes 0.6 10^3/uL (0.1-0.6); Absolute Neutrophils 5.3 10^3/uL (1.4-6.5); Hematocrit 39.4 % (39.0-52.0); Hemoglobin 12.7 g/dL (13.0-18.0); Mean Corp Hgb Conc. 32.2 g/dL (33.0-37.0); Mean Corpuscular Hgb 28.7 pg (27.0-31.0); Mean Corpuscular Volume 89.1 fL (80.0-94.0); Mean Platelet Volume 11.3 fL (7.4-10.4); Nucleated Red Blood Cells % 0 % (-); Platelet Count 181 10^3/uL (130-400); Red Blood Cell Count 4.42 10^6/uL (4.70-6.10); Red Cell Dist. Width 14.4 % (11.5-14.5); White Blood Cell Count 7.5 10^3/uL (4.8-10.8)
[2024-12-15 03:32] LABS: APTT 69.2 Sec (23.4-35.0)
[2024-12-15 03:40] LABS: Blood Urea Nitrogen 16 mg/dl (9-20); Calcium 8.6 mg/dl (8.4-10.2); Carbon Dioxide 22 mmol/L (22-30); Chloride 110 mmol/L (98-107); Estimated Creatinine Clearance 71 ml/min; Glucose 90 mg/dl (70-99); Potassium 3.9 mmol/L (3.5-5.1); Sodium 143 mmol/L (135-145); eGFR > 60.00
--- NOTE | 2024-12-15 05:01 | PTCARENOTE ---
ax3 manuela oneida- sinus 1st degree 60's- chest pain free vitals wnl
--- NOTE | 2024-12-15 07:28 | W.PN.HOSP.TC ---
Today's Communication/Plan
-
remains on IV Heparin gtt
follow up further cardiology recs
Assessment / Plan
Assessment / Plan
Patient is a 79y M with PMH significant for ASCVD including recent STEMI with RCA and LAD stents (hosp 12/03-12/06) who presents to ED complaining of neck pain, chest pain evening of 12/13.
CXR 12/14/24
Findings/impression:
Stable asymmetric elevation of the right diaphragm. No focal interstitial or airspace opacity to indicate pneumonia. The heart is top normal in size. No vascular congestion or congestive heart failure. No radiographic evidence of pneumothorax or
pleural effusion.
HEAD CT 12/14/24
IMPRESSION:
No acute intracranial abnormality noted.
Minimal senescent white matter changes. Minor paranasal sinus mucosal thickening. Small air-fluid level in the left maxillary sinus.
CTA
IMPRESSION:
No evidence of thoracic aortic aneurysm/dissection or central pulmonary embolism.
Stable marked elevation of the right hemidiaphragm.
Atypical Chest Pain
ASCVD
s/p Coronary Stents 12/03 and 12/05
- EKG unremarkable. Initial troponin is 0.065 compared to recent peak of 79.5 (12/04). peaked at 0.074
- OM1 lesion seen on recent cath with plan for eventual intervention if anginal symptoms returned.
- CTA without evidence of thoracic aortic aneurysm/dissection, no central PE
- IV heparin gtt
- Continue Aspirin, Brilinta
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
- patient on Praluent for cholesterol
- Cardiology consult appreciated
ROCHA post nitroglycerin
-head CT without acute abnormality
Benign Hypertension
- Stable. Continue metoprolol.
JOVANNI on CPAP
- Stable. Continue nightly PAP therapy.
GERD
- Stable. Would start PPI daily while on DAPT.
DVT Prophylaxis: On IV heparin
Code Status: Full
Anticipated Discharge: 24 - 48 hours
Subjective/Interval History
-
Date of Service: December 15, 2024
feeling great this morning
no chest pain
no headache
Objective Data
-
Labs:
Laboratory Results
12/14/24 12/15/24 12/15/24
21:41 02:43 09:45
WBC 7.5
Hgb 12.7 L
Hct 39.4
Plt Count 181
APTT 75.7 H 69.2 H Pending
Sodium 143
Potassium 3.9
Chloride 110 H
Carbon Dioxide 22
BUN 16
Creatinine 1.1
Glucose 90
Calcium 8.6
Vital Signs:
Vital Signs
Temp Pulse Resp BP Pulse Ox
97.8 F 68 18 104/64 97
12/15/24 02:44 12/15/24 02:38 12/14/24 15:07 12/15/24 02:38 12/14/24 15:07
I&O
12/14/24 12/15/24 12/16/24
06:59 06:59 06:59
Intake Total 560 / 560
Output Total 1999 / 1999
Balance -1440 / -1440
Review of Systems
-
History Source: Patient
All other systems: Reviewed and negative
Physical Exam
-
General: No Apparent Distress
Respiratory: Clear to Auscultation
Cardiac: Regular Rhythm and S1/S2
GI: Soft and Nontender
Musculoskeletal: No Edema
Skin: Warm and Dry; Negative Rash
Neuro: AO x 3
Psych: Calm
Data Reviewed
-
Diagnostic Radiology: Report Reviewed by me
Labs: Labs Reviewed by me
[2024-12-15 07:58] VITALS: BP 109/75
[2024-12-15] MEDS: PROTONIX 40 MG PO (08:42)
[2024-12-15] MEDS: TOPROL XL 25 MG PO (08:43)
[2024-12-15] MEDS: BRILINTA 90 MG PO ×2 (08:43→21:38)
[2024-12-15] MEDS: LOW STRENGTH ASPIRIN 81 MG PO (08:43)
[2024-12-15 10:34] LABS: APTT 87.5 Sec (23.4-35.0)
--- NOTE | 2024-12-15 10:34 | PTCARENOTE ---
PT offers no complaints, says he feels very well today. VSS. Denies pain and SOB.
--- NOTE | 2024-12-15 12:40 | CM ---
Reviewed chart. Met with and Mrs. Almaraz to review discharge plans. He states prior to admission he resides withhis spouse in a two story without any steps to enter. He states he has a first floor set-up. He states he resides in a [address]
[facility], [facility]. He states he has been there for 20 years. He states prior to admission he was independent with ambulation and adls. He states he does not have any DME in the home. He states he has a prescription plan and uses [facility].
Medical work-up in progress. The discharge plan is to return home with his spouse when medically stable.
--- NOTE | 2024-12-15 13:01 | W.PN.CARDCBS ---
Addendum entered and electronically signed by Dandre Dawson DO 12/15/24 13:31:
I saw and examined the patient.
The Assistant Basketball Coach's note was reviewed and I agree with the note.
Comment:
Plan:
Arm and neck sensation likely musculoskeletal/neuropathic in origin and is improved.
Transition off IV Heparin next 24 hrs
Echo pending.
Troponin trending down and down from prior admit troponin. Did discuss his residual OM disease, however if he continues to improve and echo stable likely stable for d/c next 24 hrs.
Patient with cardiac cath x2 during last admission 12/03/24 until 12/06/[address] to exclude vascular abnormality, CTA chest 12/14/24 did not show evidence of thoracic aortic aneurysm/dissection or central pulmonary embolism.
Cont DAPT with Brilinta 90 mg BID and aspirin 81 mg daily
LDL 49 and outpatient dose of Praluent 75 mg daily will continue upon d/c to home
Discussed with primary service and daughter at bedside.
Original Note:
Today's Communication / Plan
-
Pending echo the Heparin gtt can be stopped and patient can be d/c'd to home
Impression / Plan
-
PCP: Henry Gudino MD
CDY: Uriel Wheatley MD
IMPRESSION:
Admitted with right-sided chest pain 12/13/24
Chest discomfort, right-sided
Headache
Recent admission for GA and PCI 12/03/24 until 12/06/24
CAD
h/o IWMI and failed PCI, occlusion of OM2 2011
inferior STEMI PCI RCA [id number] Xience KSENIA and PCI LAD 3.0x33mm Xience 05/21/2018
acute inferior STEMI with RCA intervention DESx1 12/03/2024
staged LAD intervention and aborted OM1 intervention. Residual OM1 70-80% stenosis 12/05/2024
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
Hyperlipidemia statin intolerant
JOVANNI/CPAP
GERD/BE
Arthritis
Diverticulitis
Parotid tumor resection and radiation
Obesity
Hearing loss uses hearing aids
Polymyalgia rheumatica, on chronic prednisone
Echo 11/30/24: LVEF 50-55%. Inferior wall hypokinesis. Mild concentric left ventricular hypertrophy. Normal right ventricle. Aortic sclerosis without stenosis.
Echo 12/15/24: Study pending
PLAN:
-Patient admitted with 'feeling poorly' and right chest, arm and neck discomfort.
-Initial concern for ACS as pain seemed to get better with NTG SL, but Troponin trending down and no acute ischemic changed on ECG.
-Patient with residual OM-1 lesion following last admission and PCI.
-Echo pending for 12/15/24
-Patient with cardiac cath x2 during last admission 12/03/24 until 12/06/[address] to exclude vascular abnormality, CTA chest 12/14/24 did not show evidence of thoracic aortic aneurysm/dissection or central pulmonary embolism.
-Labs 12/15/24 reviewed by me and are stable
-Outpatient doses of Brilinta 90 mg BID and aspirin 81 mg daily have been continued.
-Outpatient dose of Toprol XL 25 mg daily has been continued
-New to Protonix 40 mg daily
-LDL 49 and outpatient dose of Praluent 75 mg daily will continue upon d/c to home
-Patient was also started on Heparin gtt, but will stop once echo is stable.
-Pending echo the patient can likely be d/c'd to home 12/15/24
HPI: He had developed right upper chest discomfort into his neck and arm which may have been relieved by sublingual nitroglycerin in the ER but low blood pressure noted. He then had recurrence 3 AM on transfer to the interventional care unit which
was not relieved by morphine. Sublingual nitroglycerin given which may or may not have been helpful. He did have a headache in the ER and CT scan of the head was negative. This morning he still had headache which he attributed to sublingual
nitroglycerin. This does not clearly represent acute coronary syndrome. Troponins continue to downtrend from initial event, EKG although abnormal is without change and multiple EKGs performed and reviewed personally by me. Currently he is
asymptomatic. Full vascular exam is negative except for ecchymosis right radial wrist site and right brachial artery. Pulses and capillary refill are intact. He feels his headache has improved also at the current time.
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
Subjective
Date of Service: December 15, 2024
No recurrence of chest pain
Objective
Labs:
12/15/24 02:43
12/15/24 02:43
Labs
Hgb 12.7 g/dL (13.0-18.0) L 12/15/24 02:43
Hct 39.4 % (39.0-52.0) 12/15/24 02:43
Plt Count 181 10^3/uL (130-400) 12/15/24 02:43
APTT 87.5 Sec (23.4-35.0) H 12/15/24 09:59
Sodium 143 mmol/L (135-145) 12/15/24 02:43
Potassium 3.9 mmol/L (3.5-5.1) 12/15/24 02:43
BUN 16 mg/dl (9-20) 12/15/24 02:43
Creatinine 1.1 mg/dL (0.7-1.3) 12/15/24 02:43
Glucose 90 mg/dl (70-99) 12/15/24 02:43
Troponins
12/13/24 12/14/24 12/14/24
23:55 02:00 03:24
Troponin I 0.065 H* 0.074 H* 0.072 H*
12/14/24 12/14/24
08:59 14:59
Troponin I Cancelled Cancelled
Vital Signs and I&O:
Vital Signs
Temp Pulse Resp BP Pulse Ox
98.3 F 60 20 109/75 97
12/15/24 07:58 12/15/24 10:00 12/15/24 07:58 12/15/24 07:58 12/15/24 08:37
Vital Signs
Temp Pulse Resp BP Pulse Ox
98.3 F 60 20 109/75 97
12/15/24 07:58 12/15/24 10:00 12/15/24 07:58 12/15/24 07:58 12/15/24 08:37
Intake & Output
12/13/24 12/14/24 12/15/24 12/16/24
06:59 06:59 06:59 06:59
Intake Total 560 / 560
Output Total 1999 / 1999
Balance -1440 / -1440
Physical Exam
Physical Exam
GEN: AAOx3
HEENT: MMM
LUNGS: RA
CV: SR on tele
EXT: No edema.
NEURO: Gross non-focal
SKIN: No rash
[2024-12-15 13:21] VITALS: BP 110/69
[2024-12-15 16:08] VITALS: BP 139/90
[2024-12-15 18:32] VITALS: BP 113/79
[2024-12-15 22:56] VITALS: BP 118/68
[2024-12-16 03:28] VITALS: BP 92/56
[2024-12-16 04:28] VITALS: BMI 32.1
[2024-12-16 04:45] LABS: Hematocrit 40.1 % (39.0-52.0); Hemoglobin 13.7 g/dL (13.0-18.0); Mean Corp Hgb Conc. 34.2 g/dL (33.0-37.0); Mean Corpuscular Hgb 30.4 pg (27.0-31.0); Mean Corpuscular Volume 88.9 fL (80.0-94.0); Mean Platelet Volume 11.6 fL (7.4-10.4); Platelet Count 178 10^3/uL (130-400); Red Blood Cell Count 4.51 10^6/uL (4.70-6.10); Red Cell Dist. Width 14.3 % (11.5-14.5); White Blood Cell Count 7.7 10^3/uL (4.8-10.8)
[2024-12-16 07:29] VITALS: BP 119/72
[2024-12-16 07:30] VITALS: BP 119/72
[2024-12-16] MEDS: LOW STRENGTH ASPIRIN 81 MG PO (09:41)
[2024-12-16] MEDS: PROTONIX 40 MG PO (09:48)
[2024-12-16] MEDS: TOPROL XL 25 MG PO (09:48)
[2024-12-16] MEDS: BRILINTA 90 MG PO (09:48)
[2024-12-16 11:29] VITALS: BP 130/75
--- NOTE | 2024-12-16 11:58 | W.PN.HOSP.TC ---
Today's Communication/Plan
-
OK for DC after ambulates with RN
Assessment / Plan
Assessment / Plan
Patient is a 79y M with PMH significant for ASCVD including recent STEMI with RCA and LAD stents (hosp 12/03-12/06) who presents to ED complaining of neck pain, chest pain evening of 12/13.
CXR 12/14/24
Findings/impression:
Stable asymmetric elevation of the right diaphragm. No focal interstitial or airspace opacity to indicate pneumonia. The heart is top normal in size. No vascular congestion or congestive heart failure. No radiographic evidence of pneumothorax or
pleural effusion.
HEAD CT 12/14/24
IMPRESSION:
No acute intracranial abnormality noted.
Minimal senescent white matter changes. Minor paranasal sinus mucosal thickening. Small air-fluid level in the left maxillary sinus.
CTA
IMPRESSION:
No evidence of thoracic aortic aneurysm/dissection or central pulmonary embolism.
Stable marked elevation of the right hemidiaphragm.
Atypical Chest Pain
ASCVD
s/p Coronary Stents 12/03 and 12/05
- EKG unremarkable. Initial troponin is 0.065 compared to recent peak of 79.5 (12/04). peaked at 0.074
- OM1 lesion seen on recent cath with plan for eventual intervention if anginal symptoms returned.
- CTA without evidence of thoracic aortic aneurysm/dissection, no central PE
- IV heparin gtt now off
- patient remains chest pain free
- Continue Aspirin, Brilinta
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
- patient on Praluent for cholesterol
- Cardiology consult appreciated
-OK for DC after ambulates with RN
ROCHA post nitroglycerin
-head CT without acute abnormality
Benign Hypertension
- Stable. Continue metoprolol.
JOVANNI on CPAP
- Stable. Continue nightly PAP therapy.
GERD
- Stable. Would start PPI daily while on DAPT.
DVT Prophylaxis:
Code Status: Full
Anticipated Discharge: Today
Subjective/Interval History
-
Date of Service: December 16, 2024
he is feeling well and feels ready to go home
Objective Data
-
Labs:
Laboratory Results
12/16/24
04:23
WBC 7.7
Hgb 13.7
Hct 40.1
Plt Count 178
Vital Signs:
Vital Signs
Temp Pulse Resp BP Pulse Ox
98.1 F 64 20 130/75 96
12/16/24 11:29 12/16/24 11:29 12/16/24 11:29 12/16/24 11:29 12/16/24 11:29
I&O
12/15/24 12/16/24 12/17/24
06:59 06:59 06:59
Intake Total 560 / 560
Output Total 1999 375 / 375
Balance -1440 / -1440 -375 / -375
Review of Systems
-
History Source: Patient
All other systems: Reviewed and negative
Physical Exam
-
General: No Apparent Distress
Respiratory: Clear to Auscultation
Cardiac: Regular Rhythm and S1/S2
GI: Soft and Nontender
Musculoskeletal: No Edema
Skin: Warm and Dry; Negative Rash
Neuro: AO x 3
Psych: Calm
Data Reviewed
-
Diagnostic Radiology: Report Reviewed by me
Labs: Labs Reviewed by me
--- NOTE | 2024-12-16 12:03 | W.DS.TRANS ---
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
-
Discharge Instructions:
Discharge Diagnosis/Procedures atypical chest pain, likely musculoskeletal
Diet Low Cholesterol
Activity As tolerated
Driving Restrictions As prior to admission
Bathing Restrictions None
Instructions:
Stand-Alone Forms:
Changes to Home Medications: Yes
Discharge Medications:
DC Medications w/original date entered in [employer]
alirocumab 75 mg/mL subcutaneous pen injector (Praluent Pen) 75 mg INJ Q2W High cholesterol 03/07/18
aspirin 81 mg chewable tablet 81 mg PO DAILY #1 tab 12/05/24
metoprolol succinate 25 mg tablet,extended release 24 hr 25 mg PO DAILY #90 tabs 12/05/24
ticagrelor 90 mg tablet (Brilinta) 90 mg PO BID #60 tabs 12/05/24
pantoprazole 40 mg tablet,delayed release 40 mg PO DAILY #30 tabs 12/16/24
Home Medication Changes
Addition of Protonix
Pending Results: No
--- NOTE | 2024-12-16 13:04 | PTCARENOTE ---
Pt ambulated in [place], loy well, denies Chest pain, denies SOB
--- NOTE | 2024-12-16 13:38 | W.PN.CARDCBS ---
Today's Communication / Plan
-
stable for d/c
Outpt cardiac follow up .
Impression / Plan
-
PCP: Henry Gudino MD
CDY: Uriel Wheatley MD
IMPRESSION:
Admitted with right-sided chest pain 12/13/24
Chest discomfort, right-sided
Headache
Recent admission for VT and PCI 12/03/24 until 12/06/24
CAD
h/o IWMI and failed PCI, occlusion of OM2 2011
inferior STEMI PCI RCA 3.60d69ra Xience KSENIA and PCI LAD 3.0x33mm Xience 05/21/2018
acute inferior STEMI with RCA intervention DESx1 12/03/2024
staged LAD intervention and aborted OM1 intervention. Residual OM1 70-80% stenosis 12/05/2024
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
Hyperlipidemia statin intolerant
JOVANNI/CPAP
GERD/BE
Arthritis
Diverticulitis
Parotid tumor resection and radiation
Obesity
Hearing loss uses hearing aids
Polymyalgia rheumatica, on chronic prednisone
Echo 11/30/24: LVEF 50-55%. Inferior wall hypokinesis. Mild concentric left ventricular hypertrophy. Normal right ventricle. Aortic sclerosis without stenosis.
PLAN:
Arm and neck sensation likely musculoskeletal/neuropathic in origin and is improved.
Echo December 15 stable and unchanged from prior.
Troponin trending down and down from prior admit troponin.
Patient with cardiac cath x2 during last admission 12/03/24 until 12/06/[address] to exclude vascular abnormality, CTA chest 12/14/24 did not show evidence of thoracic aortic aneurysm/dissection or central pulmonary embolism.
Cont DAPT with Brilinta 90 mg BID and aspirin 81 mg daily
LDL 49 and outpatient dose of Praluent 75 mg daily will continue upon d/c to home
Stable for d/c and discussed with primary service.
HPI: He had developed right upper chest discomfort into his neck and arm which may have been relieved by sublingual nitroglycerin in the ER but low blood pressure noted. He then had recurrence 3 AM on transfer to the interventional care unit which
was not relieved by morphine. Sublingual nitroglycerin given which may or may not have been helpful. He did have a headache in the ER and CT scan of the head was negative. This morning he still had headache which he attributed to sublingual
nitroglycerin. This does not clearly represent acute coronary syndrome. Troponins continue to downtrend from initial , EKG although abnormal is without change and multiple EKGs performed and reviewed personally by me. Currently he is
asymptomatic. Full vascular exam is negative except for ecchymosis right radial wrist site and right brachial artery. Pulses and capillary refill are intact. He feels his headache has improved also at the current time.
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
Subjective
Date of Service: December 16, 2024
Pt seen and examined. No complaints. No chest pain or shortness of breath.
Objective
Labs:
12/16/24 04:23
12/15/24 02:43
Labs
Hgb 13.7 g/dL (13.0-18.0) 12/16/24 04:23
Hct 40.1 % (39.0-52.0) 12/16/24 04:23
Plt Count 178 10^3/uL (130-400) 12/16/24 04:23
APTT Cancelled 12/15/24 16:45
Sodium 143 mmol/L (135-145) 12/15/24 02:43
Potassium 3.9 mmol/L (3.5-5.1) 12/15/24 02:43
BUN 16 mg/dl (9-20) 12/15/24 02:43
Creatinine 1.1 mg/dL (0.7-1.3) 12/15/24 02:43
Glucose 90 mg/dl (70-99) 12/15/24 02:43
Troponins
12/13/24 12/14/24 12/14/24
23:55 02:00 03:24
Troponin I 0.065 H* 0.074 H* 0.072 H*
12/14/24 12/14/24
08:59 14:59
Troponin I Cancelled Cancelled
Vital Signs and I&O:
Vital Signs
Temp Pulse Resp BP Pulse Ox
98.1 F 64 20 130/75 96
12/16/24 11:29 12/16/24 11:29 12/16/24 11:29 12/16/24 11:29 12/16/24 11:29
Vital Signs
Temp Pulse Resp BP Pulse Ox
98.1 F 64 20 130/75 96
12/16/24 11:29 12/16/24 11:29 12/16/24 11:29 12/16/24 11:29 12/16/24 11:29
Intake & Output
12/14/24 12/15/24 12/16/24 12/17/24
06:59 06:59 06:59 06:59
Intake Total 560 / 560
Output Total 1999 375 / 375
Balance -1440 / -1440 -375 / -375
Physical Exam
Physical Exam
General: No acute distress, AAOX3
Neck: Negative JVD
Heart: Regular, Negative S3 positive S1/S2, Negative S4, No murmur
Lungs: CTA b/l, negative wheezes/rales/rhonchi
Abd: Positive BS, NT/ND, neg rebound/rigidity/guarding
Ext: Negative cyanosis/clubbing/edema
Neuro: nonfocal
--- NOTE | 2024-12-16 13:43 | CM ---
Reviewed chart. Met with and Mrs. Dominique to review discharge plans. He states he maybe able to go home soon. We reviewed [facility] Services and at this time he is declining VNA Services. Prior to admission he resides with his spouse in a two
story home without any steps to enter. He resident in [facility]. Prior to admission he was independent with ambulation and adls. He does not have any DME in the home. He has a prescription plan and uses [facility]. Medical work-up in progress. The discharge plan is to return home with his spouse when medically stable.
--- NOTE | 2024-12-16 15:13 | W.DCSUMMARY ---
Discharge Summary
Discharge Data
Date of Admission: 12/14/24
Date of Discharge: 12/16/24
-
Pending Results: No
Hospital Course
Discharging Physician : Dr. Nannette Romero
Disposition : Home
Primary care physician : Dr. Henry Gudino
Principal Discharge diagnosis : Atypical chest pain
Hospital Course :
Patient is a 79y M with PMH significant for ASCVD including recent STEMI with RCA and LAD stents (hosp 12/03-12/06) who presents to ED complaining of neck pain, chest pain evening of 12/13 that reminded him of prior PR. Triage vitals stable. Labs
with Troponin 0.065, compared to recent peak of 79.5 (12/04). He received subL nitroglycerin in the ER which helped pain; later developed headache. Patient was admitted to medicine with Cardiology consulting. CTA obtained to ensure no vascular
abnormality, results below. Patient remained chest pain free remainder of hospital course. Repeat TTE unchanged from prior. Etiology of chest discomfort thought to be MSK related. He ambulated without pain prior to discharge. He is maintained on
his home cardiac regimen, with addition of Protonix for GI protection as he is on aspirin and Brilinta.
Time spent on discharge was 35 minutes.
Important imaging findings :
CXR 12/14/24
Findings/impression:
Stable asymmetric elevation of the right diaphragm. No focal interstitial or airspace opacity to indicate pneumonia. The heart is top normal in size. No vascular congestion or congestive heart failure. No radiographic evidence of pneumothorax or
pleural effusion.
HEAD CT 12/14/24
IMPRESSION:
No acute intracranial abnormality noted.
Minimal senescent white matter changes. Minor paranasal sinus mucosal thickening. Small air-fluid level in the left maxillary sinus.
CTA 12/14/24
IMPRESSION:
No evidence of thoracic aortic aneurysm/dissection or central pulmonary embolism.
Stable marked elevation of the right hemidiaphragm.
TTE 12/15/24
CONCLUSIONS
Technically difficult, Limited 2D echo follow up study
Normal left ventricular size. Mildly reduced left ventricular systolic
function. Hypokinesis of the inferior and inferolateral wall. LV ejection
fraction is 50-55%.
Compared to prior echo from November 2024, there is no significant change
Procedure findings :
Discharge Plan
-
Patient Disposition: Home (Routine Discharge)
Discharge Diagnosis/Procedures: atypical chest pain, likely musculoskeletal
Diet: Low Cholesterol
Activity: As tolerated
Driving Restrictions: As prior to admission
Bathing Restrictions: None
Referrals:
Uriel Wheatley MD [Active] - 12/18/24 12:40 pm (You have an appt to see Dr. Wheatley's nurse practitioner, Niurka, at the [facility] office on 12/18/24 at 12:40 PM. You are then scheduled to see Dr. Wheatley at the [facility] and [facility] office on
01/26/25 at 9:40 AM. Please call [phone] if you need to reschedule.)
Henry Gudino MD [Family Provider] - in less than 1 week
Additional Discharge Medication Instructions: You are started on Protonix to help protect your stomach while on Aspirin and Brilinta.
Prescriptions:
New
pantoprazole 40 mg Tablet,Delayed Release (Dr/Ec)
40 mg PO DAILY Qty: 30 0RF
Continued
Praluent Pen 75 MG/ML pen injector
75 mg INJ Q2W
aspirin 81 mg Tablet,Chewable
81 mg PO DAILY Qty: 1 0RF
metoprolol succinate 25 mg Tablet Extended Release 24 Hr
25 mg PO DAILY Qty: 90 5RF
ticagrelor [Brilinta] 90 mg Tablet
90 mg PO BID Qty: 60 12RF
Discharge Orders:
Discharge Patient (As Directed); Ordered 12/16/24
Ordered By: Nannette Romero
Care Plan Goals
Care Plan Goals:
Problem: Readiness for enhanced knowledge related to diagnosis and treatment plan
Goal: Understand your diagnosis and treatment plan needs, including medications if applicable.
Instructions: Know your diagnosis, underlying causes and treatment plan options, including medications if applicable. Consult with your health care team to learn about your diagnosis and treatment plan, including medications if applicable.
Discharge Date and Time
Discharge Date/Time: 12/16/24 14:05
Print Language: HEBREW
== END 2024-12-16 14:05 | disposition home or self-care (01) | DRG 282 ==
LOC: IVU 01:59
PROVIDERS: Internal Medicine; ADMITTING PHYSICIAN Hospitalist; ATTENDING PHYSICIAN Student in an Organized Health Care Education/Training Program; CONSULT PHYSICIAN Internal Medicine Cardiovascular Disease; EMERGENCY PHYSICIAN Emergency Medicine; FAMILY PHYSICIAN Family Medicine
DX: I21.19 ST elevation (STEMI) myocardial infarction involving other coronary artery of inferior wall (principal); G47.33 Obstructive sleep apnea (adult) (pediatric); K21.9 Gastro-esophageal reflux disease without esophagitis; I11.9 Hypertensive heart disease without heart failure; I25.10 Atherosclerotic heart disease of native coronary artery without angina pectoris; R07.9 Chest pain, unspecified; I25.2 Old myocardial infarction; Z86.73 Personal history of transient ischemic attack (TIA), and cerebral infarction without residual deficits; Z95.5 Presence of coronary angioplasty implant and graft; Z88.5 Allergy status to narcotic agent; Z88.8 Allergy status to other drugs, medicaments and biological substances; Z79.82 Long term (current) use of aspirin; E78.00 Pure hypercholesterolemia, unspecified; M19.90 Unspecified osteoarthritis, unspecified site; Z79.02 Long term (current) use of antithrombotics/antiplatelets; I44.0 Atrioventricular block, first degree; H91.90 Unspecified hearing loss, unspecified ear; E66.9 Obesity, unspecified; Z68.32 Body mass index [BMI] 32.0-32.9, adult; I70.0 Atherosclerosis of aorta; K22.70 Barrett's esophagus without dysplasia; Z79.899 Other long term (current) drug therapy; Z96.651 Presence of right artificial knee joint
CPT/HCPCS: 93308; 70450; 71045; 71275; 80048; 80053; 84484; 85025; 85027; 85730; 93005; 96365; 96366; 99291; Q9967

== ENCOUNTER 2025-01-09 16:14 | Outpatient (RCR) | payer MEDICARE, OTHER, SELFPAY | END 2025-01-09 23:59 | disposition home or self-care (01) | LOC: CRHB 16:14 | PROVIDERS: ATTENDING PHYSICIAN Internal Medicine Cardiovascular Disease | DX: I25.10 Atherosclerotic heart disease of native coronary artery without angina pectoris (principal); Z95.5 Presence of coronary angioplasty implant and graft; I25.2 Old myocardial infarction; I25.5 Ischemic cardiomyopathy | CPT/HCPCS: G0422; G0423 ==

== ENCOUNTER 2025-01-19 16:21 | Outpatient (RCR) | payer MEDICARE, OTHER, SELFPAY | END 2025-01-19 23:59 | disposition home or self-care (01) | LOC: CRHB 16:21 | PROVIDERS: ATTENDING PHYSICIAN Internal Medicine Cardiovascular Disease | DX: I25.10 Atherosclerotic heart disease of native coronary artery without angina pectoris (principal); Z95.5 Presence of coronary angioplasty implant and graft; I25.2 Old myocardial infarction | CPT/HCPCS: G0422; G0423 ==

== ENCOUNTER → 2025-01-20 09:52 | Outpatient (REF) | payer MEDICARE, OTHER, SELFPAY | LOC: HWRAD 09:52 | PROVIDERS: ATTENDING PHYSICIAN Family Medicine | DX: N20.0 Calculus of kidney (principal) | CPT/HCPCS: 74018 ==

== ENCOUNTER → 2025-01-23 12:49 | Outpatient (REF) | payer MEDICARE, OTHER, SELFPAY | LOC: RAD 12:49 | PROVIDERS: ATTENDING PHYSICIAN Family Medicine | DX: N20.0 Calculus of kidney (principal) | CPT/HCPCS: 74176 ==

== ENCOUNTER 2025-03-11 16:06 | Outpatient (RCR) | payer MEDICARE, OTHER, SELFPAY | END 2025-03-11 23:59 | disposition home or self-care (01) | LOC: CRHB 16:06 | PROVIDERS: ATTENDING PHYSICIAN Internal Medicine Cardiovascular Disease | DX: I25.10 Atherosclerotic heart disease of native coronary artery without angina pectoris (principal); Z95.5 Presence of coronary angioplasty implant and graft; I25.2 Old myocardial infarction | CPT/HCPCS: G0422; G0423 ==

== ENCOUNTER → 2025-03-13 10:53 | Outpatient (REF) | payer MEDICARE, OTHER, SELFPAY ==
[2025-03-13 11:32] LABS: Urine Character Clear (Clear)
[2025-03-13 11:43] LABS: Urine Red Blood Cell 26-30 /HPF (0-2); Urine White Cell 0-2 /HPF (0-5)
== END ==
LOC: REG 10:53
PROVIDERS: ATTENDING PHYSICIAN Specialist; FAMILY PHYSICIAN Family Medicine
DX: N39.0 Urinary tract infection, site not specified (principal)
CPT/HCPCS: 81003; 81015; 87086

== ENCOUNTER 2025-04-08 16:18 | Outpatient (RCR) | payer MEDICARE, OTHER, SELFPAY | END 2025-04-08 23:59 | disposition home or self-care (01) | LOC: CRHB 16:18 | PROVIDERS: ATTENDING PHYSICIAN Internal Medicine Cardiovascular Disease | DX: I25.10 Atherosclerotic heart disease of native coronary artery without angina pectoris (principal); Z95.5 Presence of coronary angioplasty implant and graft; I25.2 Old myocardial infarction | CPT/HCPCS: G0422 ==

== ENCOUNTER 2025-04-29 15:41 | Emergency (ER) | payer MEDICARE, OTHER, SELFPAY ==
[2025-04-29 15:41] VITALS: BMI 33.8
[2025-04-29 15:45] VITALS: BP 157/76
[2025-04-29 16:14] LABS: Hematocrit 44.4 % (39.0-52.0); Hemoglobin 14.3 g/dL (13.0-18.0); Mean Corp Hgb Conc. 32.2 g/dL (33.0-37.0); Mean Corpuscular Volume 87.4 fL (80.0-94.0); Nucleated Red Blood Cells % 0 % (-); Platelet Count 173 10^3/uL (130-400); Red Cell Dist. Width 14.3 % (11.5-14.5)
[2025-04-29 16:25] LABS: ALT (SGPT) 13 U/L (0-50); AST (SGOT) 18 U/L (17-59); Albumin 4.1 g/dl (3.5-5.0); Alkaline Phosphatase 60 U/L (38-126); Blood Urea Nitrogen 19 mg/dl (9-20); Calcium 8.9 mg/dl (8.4-10.2); Carbon Dioxide 23 mmol/L (22-30); Chloride 110 mmol/L (98-107); Glucose 127 mg/dl (70-99); Potassium 4.4 mmol/L (3.5-5.1); Sodium 141 mmol/L (135-145); Total Protein 6.9 g/dl (6.3-8.2); eGFR 51.45
[2025-04-29 16:37] LABS: Troponin I < 0.012 ng/ml
[2025-04-29 18:15] VITALS: BP 146/105
[2025-04-29 19:00] VITALS: BP 142/99
[2025-04-29 20:16] LABS: Troponin I 0.015 ng/ml
[2025-04-29 20:22] VITALS: BP 152/121
--- NOTE | 2025-04-29 21:01 | ED.GENMED ---
History of Present Illness
General
Chief Complaint: Cardiac Symptoms
Source: patient
Time Seen by Provider: 04/29/25 19:10
History of Present Illness
History of Present Illness:
Note:
CHIEF COMPLAINT(S)
The patient reports having symptoms resembling a previous heart attack, including visual disturbances and chest discomfort.
HISTORY OF PRESENT ILLNESS
The patient is a 79-year-old male with a history of cardiac issues, including a recent heart attack approximately three to four months ago. He has been undergoing cardiac rehabilitation and had been doing well, involving activities such as walking
10,000 steps daily and playing light pickleball. In the past few days, he began experiencing symptoms including unusual sensations in breathing not characterized by shortness of breath, as well as aches and pains down the neck and chest that are
reminiscent of his previous heart attack.
The patient experienced a significant episode while driving yesterday, where he had a minute-long episode of blurred vision in both eyes that was described as 'pure white,' significantly affecting his ability to see and necessitating pulling over.
He also reported that the chest discomfort occurs for 30-40 minutes and subsides, and these symptoms were not linked to physical exertion. The patient mentioned that the episodes of symptoms are concerning and that he felt compelled to seek
evaluation at the urging of his rehabilitation center. He notes that he has five existing cardiac catheterizations and is aware of a diseased vessel yet to be addressed due to its complexity.
EXTERNAL RECORDS REVIEWED
Initial laboratory studies and an electrocardiogram were reviewed and found to be normal, not indicating an immediate heart attack. The heart catheterization records from prior assessments will be reviewed to delineate the current condition of the
patients cardiac vessels, specifically evaluating the disease that was previously noted.
PHYSICAL EXAM
General: Alert, cooperative, no acute distress.
Skin: Warm, dry.
Head: Normocephalic, atraumatic.
Neck: Supple, trachea midline.
Eye, Ears, Nose, and Throat: Oral mucosa moist.
Cardiovascular: Hypertensive with blood pressure recorded at 142/99 mmHg, Normal heart sounds, and no murmurs. Peripheral perfusion adequate, No edema observed in lower extremities.
Respiratory: Respirations are non-labored with lungs clear on auscultation.
Gastrointestinal: Abdomen nondistended.
Back: Normal range of motion, normal alignment.
Musculoskeletal: Normal range of motion, normal strength.
Neurological: Alert and oriented to person, place, time, and situation, no focal neurological deficits observed.
Psychiatric: Cooperative, appropriate mood and affect.
PLAN
1. Obtain a chest x-ray to evaluate the lungs and assess for any changes in heart size that could account for the patients respiratory symptoms.
2. Review the results of the patients prior heart catheterization records to assess the status of the diseased cardiac vessels.
3. Coordinate with the [facility] educational [facility] to discuss the patients new symptoms and determine if immediate intervention is required.
4. Consider the possibility of allowing the patient to go home based on clinical evaluation and follow-up with the [facility] for urgent assessment if symptoms allow.
DIFFERENTIAL DIAGNOSIS
The Differential Diagnosis includes, in no particular order and is not limited to:
- Angina
- Myocardial infarction
- TIA or stroke
- Aortic dissection
- Arrhythmia
- Gastroesophageal reflux disease
- Pulmonary embolism
- Heart failure exacerbation
- Anxiety or panic disorder
- Visual migraine
CARE-UPDATE
04/29/25 - 20:59
The patients second enzyme levels and EKG results are within normal limits, and they currently report feeling okay. The decision has been made to discharge the patient with instructions to take it easy and monitor for any symptoms such as chest
pain, shoulder pain, or shortness of breath. A follow-up appointment has been arranged, with the exchange underwriting consultant�s office set to contact the patient tomorrow. The patient�s is scheduled for a procedure in the morning, which aligns with the timing of
the patients discharge. Pending removal of the IV before discharge.
Disposition:
SUMMARY OF ENCOUNTER
The patient presented to the emergency department with symptoms resembling a previous heart attack, including visual disturbances and chest discomfort. Given his history of cardiac issues and a recent heart attack, a thorough assessment was
necessary. Troponin was measured twice, showing results of 0.012 and 0.015, indicating no acute myocardial infarction. An electrocardiogram (EKG) showed no significant changes. Creatinine was slightly elevated at 1.4, but it aligns with past values.
Sodium levels were normal, and a complete blood count (CBC) was unremarkable. A chest x-ray indicated no acute cardiopulmonary process. Previous records, including a cardiac catheterization from December 2024, revealed an osteo-M-1 stenosis that could
not be addressed at that time.
DISPOSITION
Discharge
MANAGEMENT OF THE PATIENTS CARE WAS DISCUSSED WITH
Dr. Caldwell, [facility], who agrees with outpatient management.
PLAN
The patient will be discharged with instructions to monitor symptoms closely and follow up urgently with cardiology for outpatient assessment.
INDEPENDENT REVIEW OF LABS AND INTERPRETATION OF TESTS
- My independent review of the troponin test is negative for myocardial infarction with results of 0.012 and 0.015.
- My independent review of creatinine indicates slight elevation at 1.4, consistent with past measurements.
- Sodium normal.
- My independent chest x-ray interpretation shows no acute cardiopulmonary process.
FOLLOW-UP INSTRUCTIONS
An urgent outpatient follow-up with the [facility] will be arranged.
MEDICATION RECONCILIATION
- No medication was administered or prescribed during this encounter.
MEDICAL DECISION MAKING
- Number and Complexity of Problems Addressed: Chronic conditions affecting care including a recent heart attack and a history of cardiac catheterizations
- Differential Diagnosis: Angina, Myocardial infarction, TIA or stroke, Aortic dissection, Arrhythmia, Gastroesophageal reflux disease, Pulmonary embolism, Heart failure exacerbation, Anxiety or panic disorder, Visual migraine.
- Data:
- Category 1:
- Non-emergency department records reviewed: Prior cardiac catheterization report and laboratory results from November 2024.
- Independent interpretation: EKG showed no change; creatinine slightly elevated but consistent with history; chest x-ray clear.
- Category 3:
- Discussion of management with Dr. Caldwell, [facility], who agreed with outpatient management and follow-up.
- Risk: Consideration of Admission/Observation: Escalation of care including admission/observation was considered given the complexity and risk of the patients presenting complaint, exam findings, and/or their underlying comorbidities. However,
ultimately I feel the patient is safe for outpatient management with close follow-up. Reasoning: Work-up reassuring, does not reveal any acute life/organ threatening processes, patients symptoms well controlled upon reevaluation, reexamination is
reassuring, vitals are stable, patient agreeable with discharge, reliable for follow-up.
DIAGNOSIS
- Angina, unspecified (I20.9)
- Hypertension (I10)
- History of myocardial infarction (I25.2)
Past History
Past History
ED Past Medical History: CAD, CVA, GERD, HTN, Hypercholesterolemia, NE, Other (Sepsis March 2021, kidney stones, spinal stenosis, arthritis, chronic hearing impaired), Other and Other
ED Past Surgical History: Appendectomy, Cardiac (PTCA with stent), Cholecystectomy, Orthopedic, Urological (Kidney stone removal) and Other
Patient has exhibited threatening behavior?: No
PSI?: No
Social History
Tobacco: Non-smoker
Alcohol: None
Drug: None
Personal:
Living: with family
Employment: Retired
Family History
Family History: Hypertension
Phy Exam
Physical Exam
Physical Exam:
.
Course
Orders/Labs/Results
Orders:
Orders
04/29/25 15:43
ECG [Electrocardiogram (*1)] Urgent
Reason for Study: Chest Pain
EKG- Treatment ONCE
04/29/25 15:54
Complete Blood Count/With Diff Urgent
Comprehensive Metabolic Panel Urgent
Troponin I Urgent
04/29/25 19:30
CR Chest - 2 Views Urgent
Comment:
Reason For Exam: cp, sob
04/29/25 19:42
Troponin I Urgent
Abnormal Lab Results
04/29/25
15:54
MCHC 32.2 L g/dL
(33.0-37.0)
MPV 10.8 H fL
(7.4-10.4)
Absolute Lymphs (auto) 1.0 L 10^3/uL
(1.2-3.4)
Neutrophils % 75.5 H %
(42.2-75.2)
Lymphocytes % 13.8 L %
(20.5-51.1)
Chloride 110 H mmol/L
(98-107)
Creatinine 1.4 H mg/dL
(0.7-1.3)
Glucose 127 H mg/dl
(70-99)
Total Bilirubin 2.0 H mg/dl
(0.2-1.3)
04/29/25 15:54
04/29/25 15:54
Vital Signs
Initial and Last Documented VS:
Initial Vital Signs
Temp Pulse Resp BP Pulse Ox
98.9 F 64 16 157/76 97
04/29/25 15:45 04/29/25 15:45 04/29/25 15:45 04/29/25 15:45 04/29/25 15:45
Last Documented Vital Signs
Temp Pulse Resp BP Pulse Ox
98.9 F 63 16 152/121 98
04/29/25 15:45 04/29/25 20:30 04/29/25 20:00 04/29/25 20:22 04/29/25 20:24
*Pulse Oximetry
SaO2: 98
Oxygen Mode of Delivery: Room air
Patient hypoxic: no
*Critical Care Note
Total Time (30-74mins, 75-104mins- exclusive of procedures): Not Applicable
ED Attending Note
-
Portions of this chart may have been created with voice recognition software.� Occasional wrong word or��sound alike� substitutions may have occurred due to the inherent limitations of voice recognition software.
Discharge Plan
Departure
Patient Disposition: Home (Routine Discharge)
Date of Disposition: 04/29/25
Time of Disposition: 21:01
Patient with high blood pressure during this ER visit?: Yes
Discharge Problem:
Essential hypertension, Chest pain, Acute renal insufficiency
Instructions: Chest Pain DCA Follow Up, BLOOD PRESSURE
Prescriptions:
No Action
Praluent Pen 75 MG/ML pen injector
75 mg INJ Q2W
aspirin 81 mg Tablet,Chewable
81 mg PO DAILY Qty: 1 0RF
metoprolol succinate 25 mg Tablet Extended Release 24 Hr
25 mg PO DAILY Qty: 90 5RF
ticagrelor [Brilinta] 90 mg Tablet
90 mg PO BID Qty: 60 12RF
pantoprazole 40 mg Tablet,Delayed Release (Dr/Ec)
40 mg PO DAILY Qty: 30 0RF
Referrals:
UNKNOWN - PT DOES,NOT KNOW [Family Provider]
Activity Restrictions/Additional Instructions:
Please avoid strenuous or exertional activity until cleared by cardiology. Please see cardiology in the next 48 hours for reevaluation. Return immediately for worsening pain, shortness breath, palpitations, sweating, nausea, weakness of any kind,
numbness, tingling or any other concerns.
Cardiology has been notified and a follow up appointment has been requested. Someone will call you on the next business day to schedule a follow up appointment.
In addition, your kidney function was a little bit elevated today. Please have your doctor recheck this in the next 2 weeks.
Interventions
Interventions:
*Risk Screen - Suicide Last Done: 04/29/25 18:20
*Neglect/Abuse Screening Last Done: 04/29/25 18:20
*ED- Fall Risk Assessment Last Done: 04/29/25 18:20
ED- Pulmonary Assessment Last Done: 04/29/25 18:20
ED- Cardiac Assessment Last Done: 04/29/25 18:20
Discharge Date and Time
Print Language: CZECH
[2025-04-29 21:05] VITALS: BP 134/89
== END 2025-04-29 21:08 | disposition home or self-care (01) ==
LOC: EMR 15:41
PROVIDERS: Emergency Medicine; EMERGENCY PHYSICIAN Emergency Medicine
DX: R07.89 Other chest pain (principal); I10 Essential (primary) hypertension; N28.9 Disorder of kidney and ureter, unspecified; H53.9 Unspecified visual disturbance; I25.10 Atherosclerotic heart disease of native coronary artery without angina pectoris; E78.00 Pure hypercholesterolemia, unspecified; Z86.73 Personal history of transient ischemic attack (TIA), and cerebral infarction without residual deficits; Z90.49 Acquired absence of other specified parts of digestive tract; Z95.5 Presence of coronary angioplasty implant and graft
CPT/HCPCS: 99285; 71046; 80053; 84484; 85025; 93005; G0422

== ENCOUNTER 2025-05-01 15:58 | Outpatient (RCR) | payer MEDICARE, OTHER, SELFPAY | END 2025-05-01 23:59 | disposition home or self-care (01) | LOC: CRHB 15:58 | PROVIDERS: ATTENDING PHYSICIAN Internal Medicine Cardiovascular Disease | DX: I25.10 Atherosclerotic heart disease of native coronary artery without angina pectoris (principal); I25.2 Old myocardial infarction; Z95.5 Presence of coronary angioplasty implant and graft | CPT/HCPCS: G0422 ==

== ENCOUNTER → 2025-05-07 14:42 | Outpatient (REF) | payer MEDICARE, OTHER, SELFPAY ==
[2025-05-07 17:05] LABS: HDL Cholesterol 34 mg/dl; LDL Cholesterol, Calculated 51 mg/dl; Very Low Density Lipoprotein 31 mg/dl (0-30)
== END ==
LOC: REG 14:42
PROVIDERS: ATTENDING PHYSICIAN Internal Medicine Cardiovascular Disease; FAMILY PHYSICIAN Family Medicine
DX: E78.2 Mixed hyperlipidemia (principal); I25.10 Atherosclerotic heart disease of native coronary artery without angina pectoris
CPT/HCPCS: 36415; 80061; 83880

== ENCOUNTER → 2025-05-13 13:47 | Outpatient (REF) | payer MEDICARE, OTHER, SELFPAY | LOC: HWRCS 13:47 | PROVIDERS: ATTENDING PHYSICIAN Internal Medicine Cardiovascular Disease; FAMILY PHYSICIAN Family Medicine | DX: I25.10 Atherosclerotic heart disease of native coronary artery without angina pectoris (principal) | CPT/HCPCS: 93306 ==

== ENCOUNTER → 2025-05-14 12:11 | Outpatient (REF) | payer MEDICARE, OTHER, SELFPAY | LOC: HWRCS 12:11 | PROVIDERS: ATTENDING PHYSICIAN Family Medicine; FAMILY PHYSICIAN Family Medicine | DX: I25.10 Atherosclerotic heart disease of native coronary artery without angina pectoris (principal) | CPT/HCPCS: 78452; 93017; A9500; J2785 ==

== ENCOUNTER → 2025-05-15 07:26 | Outpatient (REF) | payer MEDICARE, OTHER, SELFPAY ==
[2025-05-15 08:57] LABS: Blood Urea Nitrogen 27 mg/dl (9-20); Calcium 9.1 mg/dl (8.4-10.2); Carbon Dioxide 27 mmol/L (22-30); Chloride 105 mmol/L (98-107); Glucose 115 mg/dl (70-99); Potassium 3.7 mmol/L (3.5-5.1); eGFR 40.75
[2025-05-15 09:06] LABS: Sodium 142 mmol/L (135-145)
== END ==
LOC: REG 07:26
PROVIDERS: ATTENDING PHYSICIAN Internal Medicine Cardiovascular Disease; FAMILY PHYSICIAN Family Medicine
DX: I10 Essential (primary) hypertension (principal)
CPT/HCPCS: 36415; 80048

== ENCOUNTER 2025-08-10 16:29 | Outpatient (RCR) | payer MEDICARE, OTHER, SELFPAY | END 2025-08-10 23:59 | disposition home or self-care (01) | LOC: CRHB 16:29 | PROVIDERS: ATTENDING PHYSICIAN Internal Medicine Cardiovascular Disease; FAMILY PHYSICIAN Family Medicine | DX: I25.10 Atherosclerotic heart disease of native coronary artery without angina pectoris (principal); I25.2 Old myocardial infarction (principal); I50.22 Chronic systolic (congestive) heart failure; Z95.5 Presence of coronary angioplasty implant and graft | CPT/HCPCS: 93798; G0422; G0423 ==